=== PATIENT | male | born 1970 | race Caucasian/White ===

== ENCOUNTER 2016-06-18 07:52 | Emergency (ER) | payer OTHER ==
[~2016-06-18] VITALS: Ht 182.9 cm; Wt 86.4 kg
[~2016-06-18 07:52] MED LIST: 00186-0370-20 IH; ALBUTEROL1.25 MG/3 IH; COUMADIN 22.5 MG/TAB PO; COUMADIN 5MG5 MG/TAB PO; COUMADIN 77.5 MG/TAB PO; DEXILANT PO; IRON325 M1 PO; LASIX 20MG TABL20 MG PO; LEVAQUIN 5500 MG/TA1 PO; LEVAQUIN 750MG750 M1 PO; LEVAQUIN500 MG PO; LOPRESSOR 225 MG/TAB PO; MOTRIN 200200 MG/TAB PO; NO HOME MEDICATIONS; PACERONE200 MG PO; PENICILLIN PO; PREDNISONE20 MG PO; PRENATAL1 TA1 PO; PROAIR HFA0.09 MG/AC IH; ROCEPHIN2 GM IJ
[2016-06-18 07:54] VITALS: BP 161/82; PULSE 83; TEMP 97.8
[2016-06-18] MEDS ORDERED: ALBUTEROL0.83 MG/ML IH (07:58)
[2016-06-18] MEDS ORDERED: CEPHALEXIN500 M1 PO (08:52)
== END 2016-06-18 09:48 | disposition home or self-care (01) ==
LOC: COL.ER 07:52
DX: S61.212A Laceration without foreign body of right middle finger without damage to nail, initial encounter (principal); Z23 Encounter for immunization; Z79.01 Long term (current) use of anticoagulants; F17.210 Nicotine dependence, cigarettes, uncomplicated; W26.0XXA Contact with knife, initial encounter; Y92.009 Unspecified place in unspecified non-institutional (private) residence as the place of occurrence of the external cause; Z95.2 Presence of prosthetic heart valve

== ENCOUNTER 2017-06-13 13:07 | Emergency (ER) | payer OTHER ==
[~2017-06-13] VITALS: Ht 180.3 cm; Wt 81.4 kg
[~2017-06-13 13:07] MED LIST changes: +ALBUTEROL0.83 MG/ML IH; +CEPHALEXIN500 M1 PO
[2017-06-13 13:13] VITALS: TEMP 98.7
[2017-06-13 14:03] LABS: BASO # 0.1 (0.0-0.2); BASO % 0.9 % (0.0-2.0); EOS # 0.5 (0.0-0.7); GRAN # 4.4 (1.4-6.5); GRAN % 67.4 % (42.2-75.2); HEMATOCRIT 42.6 % (42.0-52.0); HEMOGLOBIN 14.6 g/dl (13.5-18.0); LYMPH % 15.9 % (20.0-51.0); MEAN CELL VOLUME 96 fl (80.0-100.0); MEAN CORPUSCULAR HEMOGLOBIN 33 pg (27.0-31.0); MEAN CORPUSCULAR HGB CONC 34 g/dl (33.0-37.0); MEAN PLATELET VOLUME 10.2 fl (7.4-10.4); MONO # 0.6 (0.1-0.6); MONO % 8.6 % (1.7-9.3); PLATELET COUNT 195 K/mm3 (130-400); RED BLOOD COUNT 4.43 M/mm3 (4.20-5.60); REDCELL DISTRIBUTION WIDTH-CV 12.3 % (11.5-14.5)
[2017-06-13 14:14] LABS: ALBUMIN 4.5 gm/dL (3.5-5.0); BILIRUBIN,TOTAL 0.6 mg/dL (0.0-1.0); CALCIUM 9.2 mg/dL (8.4-10.2); CREATININE, serum 0.75 mg/dL (0.66-1.25); INR 2.4 (0.8-3.0); POTASSIUM 4.3 mmol/L (3.4-5.0); PROTHROMBIN TIME 28.6 SECONDS (9.7-12.8); TOTAL PROTEIN 7.7 gm/dL (6.4-8.2)
[2017-06-13 14:25] LABS: TROPONIN-I 0.014 ng/mL (0.000-0.034)
[2017-06-13] MEDS ORDERED: DOXYCYCLINE 10100 MG PO (16:40)
[2017-06-13] MEDS ORDERED: PROAIR HFA0.09 MG/AC IH (16:40)
[2017-06-13 17:00] VITALS: BP 149/91; PULSE 88
== END 2017-06-13 17:01 | disposition home or self-care (01) ==
LOC: COL.ER 13:07
PROVIDERS: Physician Assistant
DX: J44.9 Chronic obstructive pulmonary disease, unspecified (principal); F17.210 Nicotine dependence, cigarettes, uncomplicated; Z95.2 Presence of prosthetic heart valve; Z79.01 Long term (current) use of anticoagulants
CPT/HCPCS: J7512

== ENCOUNTER 2017-07-10 21:20 | Inpatient (IN) | payer OTHER ==
[~2017-07-10] VITALS: Ht 182.9 cm; Wt 79.3 kg
[~2017-07-10 21:20] MED LIST changes: +DOXYCYCLINE 10100 MG PO
[2017-07-10 21:42] LABS: ARTERIAL BLD GAS O2 SATURATION 88.4 % (92-100); ARTERIAL BLD GAS TCO2 CT 30.1; ARTERIAL BLOOD GAS BASE EXCESS 1.7 (-2-2); ARTERIAL BLOOD GAS HCO3 28.4 meq/L (22-26); ARTERIAL BLOOD GAS PCO2 52.8 mmHg (35-45); ARTERIAL BLOOD GAS PO2 60.4 mmHg (80-100); ARTERIAL BLOOD GAS pH 7.35 (7.35-7.45)
[2017-07-10 21:56] LABS: BASO # 0.1 (0.0-0.2); BASO % 0.8 % (0.0-2.0); EOS # 0.6 (0.0-0.7); EOS % 7.1 % (0-4.0); GRAN # 5.3 (1.4-6.5); GRAN % 58.8 % (42.2-75.2); HEMATOCRIT 40.8 % (42.0-52.0); HEMOGLOBIN 13.8 g/dl (13.5-18.0); LYMPH % 22.7 % (20.0-51.0); MEAN CELL VOLUME 97 fl (80.0-100.0); MEAN CORPUSCULAR HEMOGLOBIN 33 pg (27.0-31.0); MEAN CORPUSCULAR HGB CONC 34 g/dl (33.0-37.0); MEAN PLATELET VOLUME 10.6 fl (7.4-10.4); MONO # 0.9 (0.1-0.6); MONO % 10.3 % (1.7-9.3); PLATELET COUNT 219 K/mm3 (130-400); REDCELL DISTRIBUTION WIDTH-CV 12.8 % (11.5-14.5)
[2017-07-10 22:04] LABS: INR 2.7 (0.8-3.0); PROTHROMBIN TIME 31.4 SECONDS (9.7-12.8)
[2017-07-10 22:11] LABS: ALBUMIN 4.1 gm/dL (3.5-5.0); BILIRUBIN,TOTAL 0.7 mg/dL (0.0-1.0); CALCIUM 9.3 mg/dL (8.4-10.2); CREATININE, serum 0.9 mg/dL (0.66-1.25); POTASSIUM 4.3 mmol/L (3.4-5.0); TOTAL PROTEIN 7.6 gm/dL (6.4-8.2)
[2017-07-10 22:22] LABS: TROPONIN-I 0.013 ng/mL (0.000-0.034)
[2017-07-11 00:51] VITALS: BP 137/70; PULSE 80; TEMP 97.6
[2017-07-11 04:13] VITALS: BP 135/74; PULSE 82; TEMP 97.8
[2017-07-11 06:29] LABS: HEMATOCRIT 40.7 % (42.0-52.0); HEMOGLOBIN 13.5 g/dl (13.5-18.0); MEAN CELL VOLUME 97 fl (80.0-100.0); MEAN CORPUSCULAR HEMOGLOBIN 32 pg (27.0-31.0); MEAN CORPUSCULAR HGB CONC 33 g/dl (33.0-37.0); MEAN PLATELET VOLUME 11.1 fl (7.4-10.4); PLATELET COUNT 192 K/mm3 (130-400); RED BLOOD COUNT 4.18 M/mm3 (4.20-5.60); REDCELL DISTRIBUTION WIDTH-CV 12.6 % (11.5-14.5)
[2017-07-11 06:32] LABS: INR 2.3 (0.8-3.0); PROTHROMBIN TIME 27.6 SECONDS (9.7-12.8)
[2017-07-11 06:36] LABS: ALBUMIN 3.8 gm/dL (3.5-5.0); BILIRUBIN,TOTAL 0.8 mg/dL (0.0-1.0); CREATININE, serum 0.62 mg/dL (0.66-1.25); TOTAL PROTEIN 7.2 gm/dL (6.4-8.2)
[2017-07-11 07:39] LABS: BAND 15 % (0-10); LYMPHOCYTE 8 % (20.0-51.0); NEUTROPHILS 77 % (42.0-75.2); PLATELET ESTIMATE NORMAL (NORMAL)
[2017-07-11 08:56] VITALS: BP 130/71; PULSE 84; TEMP 98.4
[2017-07-11 12:06] VITALS: BP 128/67; PULSE 96; TEMP 97.5
[2017-07-11 15:52] VITALS: BP 124/61; PULSE 87; TEMP 97.9
[2017-07-11 19:55] VITALS: BP 129/72; PULSE 92; TEMP 98.6
[2017-07-12] VITALS: BP 131/65; PULSE 92; TEMP 98.6
[2017-07-12 03:53] VITALS: BP 116/63; PULSE 70
[2017-07-12 06:37] LABS: BASO % 0.2 % (0.0-2.0); EOS # 0.1 (0.0-0.7); EOS % 0.7 % (0-4.0); GRAN # 8.1 (1.4-6.5); GRAN % 81.8 % (42.2-75.2); HEMATOCRIT 37.5 % (42.0-52.0); HEMOGLOBIN 12.6 g/dl (13.5-18.0); LYMPH % 10.1 % (20.0-51.0); MEAN CELL VOLUME 97 fl (80.0-100.0); MEAN CORPUSCULAR HEMOGLOBIN 33 pg (27.0-31.0); MEAN CORPUSCULAR HGB CONC 34 g/dl (33.0-37.0); MEAN PLATELET VOLUME 10.9 fl (7.4-10.4); MONO # 0.7 (0.1-0.6); MONO % 6.7 % (1.7-9.3); PLATELET COUNT 193 K/mm3 (130-400); RED BLOOD COUNT 3.87 M/mm3 (4.20-5.60); REDCELL DISTRIBUTION WIDTH-CV 12.7 % (11.5-14.5)
[2017-07-12 06:49] LABS: INR 1.4 (0.8-3.0)
[2017-07-12 06:50] LABS: CREATININE, serum 0.6 mg/dL (0.66-1.25); POTASSIUM 4.1 mmol/L (3.4-5.0)
[2017-07-12 08:14] VITALS: BP 110/66; PULSE 94; TEMP 97.7
[2017-07-12 12:50] VITALS: BP 119/60; PULSE 71; TEMP 97.8
[2017-07-12 14:34] LABS: PLEURAL FLUID APPEARANCE BLOODY; PLEURAL FLUID COLOR RED; PLEURAL FLUID RBC 452000 /mm3 (0-0); PLEURAL FLUID WBC 849 /mm3
[2017-07-12 14:39] LABS: GLUCOSE,PLEURAL FLUID 128 mg/dL; TOTAL PROTEIN,PLEURAL FLUID 4.5 gm/dL
[2017-07-12 15:39] VITALS: BP 132/60; PULSE 102; TEMP 97.2
[2017-07-12 20:27] VITALS: BP 126/65; PULSE 80
[2017-07-13 00:07] VITALS: BP 125/71; PULSE 77; TEMP 97.6
[2017-07-13 04:14] VITALS: BP 113/71; PULSE 66; TEMP 97.4
[2017-07-13 06:39] LABS: BASO % 0.3 % (0.0-2.0); EOS # 0.2 (0.0-0.7); EOS % 2.1 % (0-4.0); GRAN % 65.9 % (42.2-75.2); HEMATOCRIT 39.8 % (42.0-52.0); HEMOGLOBIN 12.9 g/dl (13.5-18.0); LYMPH # 1.6 (1.2-3.4); LYMPH % 21.7 % (20.0-51.0); MEAN CELL VOLUME 101 fl (80.0-100.0); MEAN CORPUSCULAR HEMOGLOBIN 33 pg (27.0-31.0); MEAN CORPUSCULAR HGB CONC 32 g/dl (33.0-37.0); MEAN PLATELET VOLUME 10.9 fl (7.4-10.4); MONO # 0.7 (0.1-0.6); MONO % 9.6 % (1.7-9.3); PLATELET COUNT 188 K/mm3 (130-400); RED BLOOD COUNT 3.96 M/mm3 (4.20-5.60); REDCELL DISTRIBUTION WIDTH-CV 12.6 % (11.5-14.5)
[2017-07-13 06:45] LABS: INR 1.1 (0.8-3.0); PROTHROMBIN TIME 12.9 SECONDS (9.7-12.8)
[2017-07-13 06:55] LABS: CALCIUM 8.9 mg/dL (8.4-10.2); CREATININE, serum 0.66 mg/dL (0.66-1.25); POTASSIUM 4.3 mmol/L (3.4-5.0)
[2017-07-13 07:27] VITALS: BP 119/69; PULSE 65; TEMP 98.1
[2017-07-13 11:36] VITALS: BP 130/68; PULSE 95; TEMP 97.6
[2017-07-13] MEDS ORDERED: MEDROL 4MG DOSPA4 MG PO (12:49)
[2017-07-13] MEDS ORDERED: LEVAQUIN 750MG750 M1 PO (12:49)
[2017-07-13] MEDS ORDERED: MUCINEX1200 MG PO (12:49)
[2017-07-13] MEDS ORDERED: TYLENOL 325MG325 MG PO (12:52)
[2017-07-13] MEDS ORDERED: LOVENOX 8080 MG/0.8 SQ (12:52)
[2017-07-13] MEDS ORDERED: PULMICORT180 MCG/Ac IH (12:53)
== END 2017-07-13 16:16 | disposition home or self-care (01) | DRG 189 ==
LOC: COL.ER 21:20 → MEDICAL 23:25
PROVIDERS: Emergency Medicine; Nurse Practitioner Family; Physician Assistant
PROC: 0W993ZX Drainage of Right Pleural Cavity, Percutaneous Approach, Diagnostic (ICD-10-PCS; principal; 2017-07-12)
DX: J96.01 Acute respiratory failure with hypoxia (principal); J44.1 Chronic obstructive pulmonary disease with (acute) exacerbation; J90 Pleural effusion, not elsewhere classified; F17.210 Nicotine dependence, cigarettes, uncomplicated; Z79.01 Long term (current) use of anticoagulants; Z95.2 Presence of prosthetic heart valve
CPT/HCPCS: 99222-AI; 99232-AI; 99239; J0696; J1650; J1956; J2930; J7512; Q9967

== ENCOUNTER → 2017-08-14 | Outpatient (CLI) | payer OTHER ==
[~2017-08-14] MED LIST changes: +LOVENOX 8080 MG/0.8 SQ; +MEDROL 4MG DOSPA4 MG PO; +MUCINEX1200 MG PO; +PULMICORT180 MCG/Ac IH; +TYLENOL 325MG325 MG PO
== END ==
LOC: COL.PUL 11:55
DX: J90 Pleural effusion, not elsewhere classified (principal); J44.9 Chronic obstructive pulmonary disease, unspecified
CPT/HCPCS: A9539; A9540

== ENCOUNTER 2017-08-29 08:19 | Day surgery (SDC) | payer OTHER ==
[~2017-08-29] VITALS: Ht 182.9 cm; Wt 82.1 kg
[2017-08-29 08:44] VITALS: BP 133/71; PULSE 88; TEMP 97.8
[2017-08-29] MEDS ORDERED: COUMADIN 5MG5 MG/TAB PO (08:51)
[2017-08-29 09:06] LABS: INR 1.4 (0.8-3.0); PROTHROMBIN TIME 15.5 SECONDS (9.7-12.8)
[2017-08-29 10:35] VITALS: BP 138/73; PULSE 80
[2017-08-29 10:45] VITALS: BP 123/74; PULSE 81
[2017-08-29 11:00] VITALS: BP 125/67; PULSE 82
[2017-08-29 11:15] LABS: PLEURAL FLUID RBC 734000 /mm3 (0-0); PLEURAL FLUID WBC 1405 /mm3
[2017-08-29 11:23] LABS: PLEURAL FLUID APPEARANCE BLOODY; PLEURAL FLUID COLOR RED
[2017-08-29 11:24] LABS: GLUCOSE,PLEURAL FLUID 79 mg/dL; TOTAL PROTEIN,PLEURAL FLUID 4.3 gm/dL
[2017-08-29 11:27] LABS: HEMATOCRIT 8.2 % (42.0-52.0); HEMOGLOBIN 2.4 g/dl (13.5-18.0)
[2017-08-29 17:10] VITALS: BP 124/80; PULSE 82
== END 2017-08-29 11:15 | disposition home or self-care (01) ==
LOC: SDCO 08:19 → EDSTATUS 09:30 → SDCO 11:15
PROVIDERS: Internal Medicine Pulmonary Disease
DX: J94.2 Hemothorax (principal); J90 Pleural effusion, not elsewhere classified; J44.9 Chronic obstructive pulmonary disease, unspecified; I27.20 Pulmonary hypertension, unspecified; F17.210 Nicotine dependence, cigarettes, uncomplicated; Z95.2 Presence of prosthetic heart valve; Z79.01 Long term (current) use of anticoagulants
CPT/HCPCS: 19804

== ENCOUNTER → 2018-09-21 | Outpatient (CLI) | payer SELFPAY ==
[2018-09-21 10:57] LABS: BASO % 0.3 % (0.0-2.0); EOS # 0.2 (0.0-0.7); EOS % 1.8 % (0-4.0); GRAN # 7.1 (1.4-6.5); GRAN % 78.8 % (42.2-75.2); HEMATOCRIT 43.8 % (42.0-52.0); HEMOGLOBIN 14.6 g/dl (13.5-18.0); LYMPH % 10.8 % (20.0-51.0); MEAN CELL VOLUME 99 fl (80.0-100.0); MEAN CORPUSCULAR HEMOGLOBIN 33 pg (27.0-31.0); MEAN CORPUSCULAR HGB CONC 33 g/dl (33.0-37.0); MEAN PLATELET VOLUME 9.6 fl (7.4-10.4); MONO # 0.7 (0.1-0.6); PLATELET COUNT 217 K/mm3 (130-400); RED BLOOD COUNT 4.44 M/mm3 (4.20-5.60); REDCELL DISTRIBUTION WIDTH-CV 12.7 % (11.5-14.5)
[2018-09-21 10:59] LABS: PROTHROMBIN TIME 11.2 SECONDS (9.7-12.8)
[2018-09-21 11:03] LABS: ALBUMIN 4.3 gm/dL (3.5-5.0); BILIRUBIN,TOTAL 0.7 mg/dL (0.0-1.0); CALCIUM 9.2 mg/dL (8.4-10.2); CREATININE, serum 0.85 (0.66-1.25); POTASSIUM 5.2 mmol/L (3.4-5.0)
== END ==
LOC: COL.RAD 10:35
PROVIDERS: Registered Nurse
DX: J44.9 Chronic obstructive pulmonary disease, unspecified (principal); J94.8 Other specified pleural conditions; Z95.4 Presence of other heart-valve replacement; Z95.2 Presence of prosthetic heart valve; Z79.01 Long term (current) use of anticoagulants; Z86.79 Personal history of other diseases of the circulatory system

== ENCOUNTER → 2018-09-27 | Outpatient (CLI) | payer SELFPAY ==
[2018-09-27 14:28] LABS: INR 2.1 (0.8-3.0); PROTHROMBIN TIME 24.9 SECONDS (9.7-12.8)
== END ==
LOC: COL.LAB 13:35
PROVIDERS: Internal Medicine
DX: Z01.89 Encounter for other specified special examinations (principal)

== ENCOUNTER → 2018-10-01 | Outpatient (CLI) | payer OTHER | LOC: COL.VAS 14:55 | DX: I51.7 Cardiomegaly (principal); J44.9 Chronic obstructive pulmonary disease, unspecified; Z98.890 Other specified postprocedural states; Z79.01 Long term (current) use of anticoagulants; Z95.2 Presence of prosthetic heart valve; Z86.79 Personal history of other diseases of the circulatory system ==

== ENCOUNTER → 2018-10-04 | Outpatient (CLI) | payer OTHER | LOC: COL.LAB 14:55 | PROVIDERS: Registered Nurse | DX: Z79.01 Long term (current) use of anticoagulants (principal); Z98.890 Other specified postprocedural states ==

== ENCOUNTER → 2018-10-18 | Outpatient (CLI) | payer OTHER ==
[2018-10-18 10:56] LABS: INR 3.3 (0.8-3.0); PROTHROMBIN TIME 40.1 SECONDS (9.7-12.8)
== END ==
LOC: COL.LAB 10:28
PROVIDERS: Registered Nurse
DX: Z79.01 Long term (current) use of anticoagulants (principal); Z98.890 Other specified postprocedural states

== ENCOUNTER → 2018-11-05 | Outpatient (CLI) | payer OTHER ==
[2018-11-05 09:46] LABS: COLLECTION METHOD CLEAN CATCH
[2018-11-05 09:51] LABS: HEMATOCRIT 38.6 % (42.0-52.0); MEAN CELL VOLUME 97 fl (80.0-100.0); MEAN CORPUSCULAR HEMOGLOBIN 33 pg (27.0-31.0); MEAN CORPUSCULAR HGB CONC 34 g/dl (33.0-37.0); MEAN PLATELET VOLUME 9.8 fl (7.4-10.4); PLATELET COUNT 206 K/mm3 (130-400); RED BLOOD COUNT 3.97 M/mm3 (4.20-5.60); REDCELL DISTRIBUTION WIDTH-CV 12.2 % (11.5-14.5)
[2018-11-05 09:55] LABS: PH 7 (5-8); SQUAMOUS EPITHELIAL None Seen /hpf; URINE APPEARANCE Clear; URINE BACTERIA None Seen /hpf; URINE BILIRUBIN Negative (NEGATIVE); URINE BLOOD Negative (NEGATIVE); URINE COLOR Straw; URINE GLUCOSE Negative (NEGATIVE); URINE KETONE Negative (NEGATIVE); URINE LEUKOCYTE ESTERASE Negative (NEGATIVE); URINE NITRATE Negative (NEGATIVE); URINE PROTEIN(semi-quant) Negative (NEGATIVE); URINE RBC 0-2 /hpf; URINE UROBILINOGEN Negative (NEGATIVE)
[2018-11-05 09:59] LABS: CHOLESTEROL RISK RATIO 2.4
[2018-11-05 10:31] LABS: TSH w REFLEX 1.44 uIU/mL (0.465-4.680)
[2018-11-05 11:44] LABS: EOSINOPHIL 3 % (0-4); LYMPHOCYTE 8 % (20.0-51.0); NEUTROPHILS 84 % (42.0-75.2)
[2018-11-05 11:45] LABS: PLATELET ESTIMATE NORMAL (NORMAL)
== END ==
LOC: COL.LAB 09:24
PROVIDERS: Registered Nurse
DX: Z13.228 Encounter for screening for other metabolic disorders (principal); Z79.01 Long term (current) use of anticoagulants

== ENCOUNTER → 2018-12-31 | Outpatient (CLI) | payer OTHER ==
[2018-12-31 10:16] LABS: PROTHROMBIN TIME 23.3 SECONDS (9.7-12.8)
== END ==
LOC: COL.LAB 09:16
PROVIDERS: Registered Nurse
DX: Z79.01 Long term (current) use of anticoagulants (principal); Z98.890 Other specified postprocedural states

== ENCOUNTER 2019-03-13 15:18 | Inpatient (IN) | payer OTHER ==
[~2019-03-13] VITALS: Ht 182.9 cm; Wt 88.6 kg
--- NOTE | 2019-03-13 10:30 | NUR ---
Pt resting in bed with girlfriend at bedside. Alert and oriented. Denies any pain or discomfort at this time. Has minor left sided facial drooping. Denies any weakness. Ambulatory. Pt able to drink water without coughing or complaints. Per Allie, TOURIST CAMP ATTENDANT advance to cardiac diet. Pt given sandwich and water. Meds given as ordered. IV to LW patent with fluids infusing. Needs met. Call light within reach.
[2019-03-13] MEDS ORDERED: COUMADIN 5MG5 MG/TAB PO (15:59)
[2019-03-13] MEDS ORDERED: BREO IH (16:00)
[2019-03-13] MEDS ORDERED: SPIRIVA RE2.5 MCG/Ac IH (16:00)
[2019-03-13] MEDS ORDERED: IPRATROPIUM BROM3 M1 IH (16:01)
[2019-03-13 16:07] LABS: BASO % 0.4 % (0.0-2.0); EOS # 0.3 (0.0-0.7); EOS % 3.9 % (0-4.0); GRAN # 5.5 (1.4-6.5); GRAN % 71.9 % (42.2-75.2); HEMATOCRIT 39.5 % (42.0-52.0); HEMOGLOBIN 13.6 g/dl (13.5-18.0); LYMPH # 1.2 (1.2-3.4); LYMPH % 15.9 % (20.0-51.0); MEAN CELL VOLUME 97 fl (80.0-100.0); MEAN CORPUSCULAR HEMOGLOBIN 33 pg (27.0-31.0); MEAN CORPUSCULAR HGB CONC 34 g/dl (33.0-37.0); MEAN PLATELET VOLUME 10.1 fl (7.4-10.4); MONO # 0.6 (0.1-0.6); MONO % 7.6 % (1.7-9.3); PLATELET COUNT 187 K/mm3 (130-400); RED BLOOD COUNT 4.09 M/mm3 (4.20-5.60); REDCELL DISTRIBUTION WIDTH-CV 11.9 % (11.5-14.5)
[2019-03-13 16:13] LABS: INR 1.1 (0.8-3.0); PROTHROMBIN TIME 12.5 SECONDS (9.7-12.8)
[2019-03-13 16:15] LABS: PARTIAL THROMBOPLASTIN TIME 33.9 SECONDS (26.0-37.0)
[2019-03-13 16:22] LABS: ALBUMIN 4.5 gm/dL (3.5-5.0); BILIRUBIN,TOTAL 0.6 mg/dL (0.0-1.0); CALCIUM 9.2 mg/dL (8.4-10.2); CREATININE, serum 0.67 (0.66-1.25); POTASSIUM 4.1 mmol/L (3.4-5.0); TOTAL PROTEIN 7.9 gm/dL (6.4-8.2)
[2019-03-13 16:31] LABS: TROPONIN-I 0.013 ng/mL (0.000-0.035)
[2019-03-13 21:01] LABS: MAGNESIUM 2.1 mg/dL (1.6-2.3); PHOSPHOROUS 3.8 mg/dL (2.5-4.5)
[2019-03-13] MEDS ORDERED: RT SPIRIVA18 MCG IH (23:11)
[2019-03-14] VITALS (7 sets, daily range): BP systolic 109–152; BP diastolic 53–89; PULSE 66–83; TEMP 97.7–98.4
--- NOTE | 2019-03-14 05:53 | NUR ---
Pt uneventful during this shift. Pt aware of urine collection and to notify staff when he urinates. Girlfriend remained at bedside. Call light within reach.
--- NOTE | 2019-03-14 07:14 | NUR ---
Report given to YOSVANY Melgar.
[2019-03-14 07:29] LABS: BASO % 0.6 % (0.0-2.0); EOS # 0.2 (0.0-0.7); EOS % 3.2 % (0-4.0); GRAN # 4.5 (1.4-6.5); GRAN % 68.5 % (42.2-75.2); HEMATOCRIT 37.7 % (42.0-52.0); HEMOGLOBIN 12.6 g/dl (13.5-18.0); LYMPH # 1.2 (1.2-3.4); LYMPH % 17.8 % (20.0-51.0); MEAN CELL VOLUME 99 fl (80.0-100.0); MEAN CORPUSCULAR HEMOGLOBIN 33 pg (27.0-31.0); MEAN CORPUSCULAR HGB CONC 33 g/dl (33.0-37.0); MEAN PLATELET VOLUME 10.7 fl (7.4-10.4); MONO # 0.6 (0.1-0.6); MONO % 9.6 % (1.7-9.3); PLATELET COUNT 170 K/mm3 (130-400); REDCELL DISTRIBUTION WIDTH-CV 12.1 % (11.5-14.5)
[2019-03-14 07:39] LABS: INR 1.1 (0.8-3.0); PROTHROMBIN TIME 12.7 SECONDS (9.7-12.8)
[2019-03-14 07:41] LABS: CALCIUM 8.9 mg/dL (8.4-10.2); CHOLESTEROL RISK RATIO 2.5; CREATININE, serum 0.65 (0.66-1.25); POTASSIUM 4.2 mmol/L (3.4-5.0)
[2019-03-14 07:52] LABS: COLLECTION METHOD CLEAN CATCH
--- NOTE | 2019-03-14 08:00 | NUR ---
Patient in bed resting. Alert and oriented x 3. Shift assessment complete. Spouse at bedside. Mild slurring with speach noted. Denies further needs at this time. Will continue to monitor.
[2019-03-14 08:09] LABS: PH 5 (5-8); SQUAMOUS EPITHELIAL None Seen /hpf; URINE APPEARANCE Clear; URINE BACTERIA None Seen /hpf; URINE BILIRUBIN Negative (NEGATIVE); URINE BLOOD 1+ (NEGATIVE); URINE COLOR Yellow; URINE GLUCOSE Negative (NEGATIVE); URINE KETONE Negative (NEGATIVE); URINE LEUKOCYTE ESTERASE Negative (NEGATIVE); URINE NITRATE Negative (NEGATIVE); URINE PROTEIN(semi-quant) Negative (NEGATIVE); URINE RBC 0-2 /hpf; URINE UROBILINOGEN Negative (NEGATIVE)
[2019-03-14 08:12] LABS: TRICYCLIC ANTIDEPRESS URINE NEGATIVE
--- NOTE | 2019-03-14 10:02 | NUR ---
Patient is lying in bed at this time. Up Ad Alina. Patient has no complaints at this time. Bed in low position, call light within reach, will continue to monitor.
--- NOTE | 2019-03-14 10:46 | NUR ---
Patient down for MRI
--- NOTE | 2019-03-14 11:20 | NUR ---
MRI called up, patient had a panic attack while attempting to get MRI done, Contacted Ratna GOMEZ for 1 time order of ativan. Medication given down in MRI.
--- NOTE | 2019-03-14 13:49 | NUR ---
Patient is laying in bed sleeping at this time. Has no complaints. Bed in low position, call light within reach. Report given to primary RN Talia.
--- NOTE | 2019-03-14 13:59 | NUR ---
Primary nurse was assisted with [id number] patient care by [employer] student Mony Cristina and [employer] instructor Mercedes Newton RN-.
--- NOTE | 2019-03-14 14:00 | NUR ---
Radiology was unable to complete MRI due to patient anxiety during exam. Hosiptalist was notified.
--- NOTE | 2019-03-14 14:17 | NUR ---
KADY met with the patient and the patient's girlfriend, Palmira (ph#[phone]), to discuss discharge plan. The patient lives alone in [place]. Palmira states that she lives an apartment down from him. He reports independence with ADLs and does not have any DME. The patient receives primary care at the [facility] in [place] and he receives his medications at the [facility] in [place] or [facility]. He reports difficulties affording his meds and states that the [facility] in [place] assists him with his meds. The patient is self pay. Financial Counseling has been consulted. The patient does not have advanced directives completed, but he was interested in obtaining a form for DPOA-HC. KADY provided. He states that his next of kin would be his brother, Driss (ph#[phone]). The patient plans to return home upon discharge. SW to continue to follow.
[2019-03-14 15:55] LABS: FOLATE (FOLIC ACID) 15.2 ng/mL (7.0-31.4)
--- NOTE | 2019-03-14 18:18 | NUR ---
Patient has done well throughout the day. Minimal needs. Independent in room, steady gait. Family at bedside. Heparin drip initiated per orders. Denies further needs at this time. Will report off to slot shift manager.
--- NOTE | 2019-03-14 18:50 | NUR ---
REPORT RECEIVED FROM YOSVNAY CORMIER; CARE OF PT ASSUMED AT THIS TIME. ROUNDS COMPLETED, PT PROVIDED WITH ICE WATER PER REQUEST. CALL LIGHT WITHIN REACH.
--- NOTE | 2019-03-14 20:59 | NUR ---
PT IS DROWSY, AWAKENS EASILY; OX3, APPROPRIATE. PT DENIES ANY PAIN. SPEECH IS SLIGHTLY SLURRED, FACIAL DROOP TO LEFT SIDE BARELY NOTICEABLE. ACUTE CARE CERTIFIED NURSING ASSISTANT AND PRESSES ARE EQUAL. PT DENIES ANY OTHER ISSUES. AT BEDSIDE, CALL LIGHT WITHIN REACH.
--- NOTE | 2019-03-14 23:15 | NUR ---
Xa RESULT IS 0.67, NO CHANGE TO HEPARIN GTT. LAB ORDERED FOR 03/15/19 AT 0500.
[2019-03-15] VITALS (10 sets, daily range): BP systolic 103–125; BP diastolic 44–82; PULSE 70–80; TEMP 97.2–98.8
--- NOTE | 2019-03-15 06:17 | NUR ---
PT SLEPT THROUGH THE NIGHT BETWEEN ALCOHOL DETOX ASSESSMENTS EVERY 2 HOURS. PT HAS NOT BEEN SCORING ON THESE. PT DENIES ANY ISSUES OR PAIN. VERY SLIGHT FACIAL DROOP IS NOTED OCC AND PT HAS SOME SLURRED SPEECH THAT HAS SEEMED TO IMPROVE SINCE START OF SHIFT. STAYED IN ROOM WITH PT THROUGH THE NIGHT. NEURO CHECKS HAVE BEEN NORMAL.
--- NOTE | 2019-03-15 07:13 | NUR ---
REPORT GIVEN TO YOSVANY FITZGERALD; [facility].
[2019-03-15 07:40] LABS: INR 1.1 (0.8-3.0); PROTHROMBIN TIME 13.2 SECONDS (9.7-12.8)
--- NOTE | 2019-03-15 10:41 | NUR ---
Patient laying in bed awake, has no complaints at this time. patient up ad simba. call light within reach, will continue to monitor.
--- NOTE | 2019-03-15 12:36 | NUR ---
Patient down in MRI at this time.
--- NOTE | 2019-03-15 13:00 | NUR ---
Patient had his MRI. He was off his heparin for about an hour. Restarted heparin as ordered per protocol. Called lab to cancel 1245 HepXa but they had already drawn it and resulted it. Explained that it is not accurate since he was off his heparin. Will check at 1830 per protocol. Patient has been independent in the room. His has been with him. He continues to have some left sided weakness to his arm and hand, gait is steady to left foot. He has some slurred speech. No other changes at this time. Call light within reach.
--- NOTE | 2019-03-15 13:38 | NUR ---
Report given to primary RN Kathy.
--- NOTE | 2019-03-15 14:01 | NUR ---
Primary nurse was assisted with [phone] patient care by [employer] student Mony Cristina and [employer] instructor Mercedes Newton RN-.
--- NOTE | 2019-03-15 20:30 | NUR ---
Shift assessment complete. Patient dangling at bedside, visiting with and friend. Denies pain. CIWA score 0. Neuro assessment WNL. Denies further needs at this time. Will continue to monitor.
[2019-03-16] VITALS (9 sets, daily range): BP systolic 116–142; BP diastolic 50–76; PULSE 66–82; TEMP 97.9–98.7
--- NOTE | 2019-03-16 02:37 | NUR ---
Hep Xa 0.37, within goal rate. No change. Will place order for Hep Xa at 0800.
--- NOTE | 2019-03-16 04:57 | NUR ---
Patient in bed, resting. VS stable, CIWA score 0. Denies pain. Denies further needs at this time. Will continue to monitor.
--- NOTE | 2019-03-16 08:15 | NUR ---
Assessment complete. Pt sitting up on side of bed, A&O x 4. Breath sounds CTAB. BS active x 4. Pt denies pain at this time. IV Heparin infusing per orders through left forearm site without s/s of complications. Slight asymmetry to the left with tongue, facial droop. No further needs reported. Call light in reach.
[2019-03-16 08:16] LABS: BASO % 0.5 % (0.0-2.0); EOS # 0.2 (0.0-0.7); EOS % 4.3 % (0-4.0); GRAN # 3.5 (1.4-6.5); GRAN % 63.5 % (42.2-75.2); HEMATOCRIT 40.4 % (42.0-52.0); HEMOGLOBIN 13.6 g/dl (13.5-18.0); LYMPH # 1.1 (1.2-3.4); LYMPH % 20.1 % (20.0-51.0); MEAN CELL VOLUME 98 fl (80.0-100.0); MEAN CORPUSCULAR HEMOGLOBIN 33 pg (27.0-31.0); MEAN CORPUSCULAR HGB CONC 34 g/dl (33.0-37.0); MEAN PLATELET VOLUME 10.7 fl (7.4-10.4); MONO # 0.6 (0.1-0.6); MONO % 11.2 % (1.7-9.3); PLATELET COUNT 173 K/mm3 (130-400); RED BLOOD COUNT 4.12 M/mm3 (4.20-5.60); REDCELL DISTRIBUTION WIDTH-CV 11.9 % (11.5-14.5)
[2019-03-16 08:25] LABS: INR 1.3 (0.8-3.0); PROTHROMBIN TIME 14.9 SECONDS (9.7-12.8)
[2019-03-16 08:37] LABS: CALCIUM 9.5 mg/dL (8.4-10.2); CREATININE, serum 0.66 (0.66-1.25); POTASSIUM 4.5 mmol/L (3.4-5.0)
--- NOTE | 2019-03-16 20:00 | NUR ---
Pt resting in bed. Family at bedside. No distress noted. Pt denies pain. L sided weakness noted in manager battery strength- very minimal. L sided facial droop noted. No other neurological deficits noted. Lungs clear. Abdomen soft, nontender. BS+. Telemetry in place- NSR. Pt denies needs.
--- NOTE | 2019-03-16 22:30 | NUR ---
Telemetry called and reported patient had a 17 beat run of A fib with RVR and converted back into SR. Pt was sleeping. Denies any symptoms. Myrna GOMEZ contacted. Orders received for labs and Lopressor BID.
[2019-03-17] VITALS (8 sets, daily range): BP systolic 110–131; BP diastolic 64–91; PULSE 59–81; TEMP 98.1–98.8
[2019-03-17 00:33] LABS: CALCIUM 9.4 mg/dL (8.4-10.2); CREATININE, serum 0.69 (0.66-1.25); MAGNESIUM 2.1 mg/dL (1.6-2.3); POTASSIUM 4.4 mmol/L (3.4-5.0)
--- NOTE | 2019-03-17 05:40 | NUR ---
Pt resting this AM. Heparin gtt infusing. Awaiting Hep Xa lab draw. Pt reports shortness of breath. Inspiratory and expiratory wheezes auscultated throughout. Spo2 is 97% on room air. RT called to request breathing treatment.
--- NOTE | 2019-03-17 07:36 | NUR ---
Assessment complete. Pt A&O x 4. Physical assessment unremarkable. IV Heparin infusing per orders through left forearm site without s/s of complications. Pt now ambulating in hallway with steady gait accompanied by significant other.
[2019-03-17 08:27] LABS: INR 1.3 (0.8-3.0); PROTHROMBIN TIME 15.7 SECONDS (9.7-12.8)
--- NOTE | 2019-03-17 10:23 | NUR ---
Warfarin Follow-up Pharmacy Note Current regimen: Warfarin 7.5 mg po qHS LABS: INR 1.3 Changes in therapy: Will increase to Warfarin 10 mg po qHS as INR not increasing on current regimen. Pharmacy will coninute to monitor daily INR levels.
--- NOTE | 2019-03-17 18:00 | NUR ---
Pt sitting up in bed, has been ambulating in the room and hallway throughout the day with a steady gait. Uneventful shift. Heparin infusion infusing per protocol. Call light in reach.
[2019-03-18 04:40] VITALS: BP 128/71; PULSE 75; TEMP 98.4
--- NOTE | 2019-03-18 05:22 | NUR ---
PT RESTING QUIETLY. NEURO CHECKS WNL. NO VISABLE DEFICITS. NO SLURRED SPEECH NOTED.
[2019-03-18 06:57] LABS: INR 1.5 (0.8-3.0); PROTHROMBIN TIME 17.6 SECONDS (9.7-12.8)
[2019-03-18 07:56] VITALS: BP 126/73; PULSE 67; TEMP 98.2
--- NOTE | 2019-03-18 08:00 | NUR ---
PATIENT IS A&O. VSS. DENIES PAIN. PATIENT ON HEPARIN GTT VIA PUMP INTO LEFT WRIST IV. HEAD TO TOE ASSESSMENT COMPLETE. AM MEDS GIVEN. PATIENT INDEPENDENT IN ROOM. AT BEDSIDE. TELE INPLACE WITH HR IN 60-70'S. DENIES SOA OR CHEST PAIN. PT/OT/ST CONSULTED. BREAKFAST TRAY AT BEDSIDE. NO OTHER NEEDS AT THIS TIME.
--- NOTE | 2019-03-18 10:30 | NUR ---
PATIENT HAD A HEPXA AT 0600 OF 0.07, NO HEP BOLUS OR TITRATION NOTED ON EMAR. COMFIRMED WITH PHARMACY. NO ADJUSTMENT OR REPEAT HEXPA ORDERED. PATIENT GIVEN BOLUS AND INCREASED HEP GTT BY 2.5ML FOR A TOTAL OF 18.5ML/HR. NEXT HEPXA ORDERED. HEPARIN FLOW SHEET ON PATIENT'S DOOR. WILL MONITOR.
[2019-03-18 12:18] VITALS: BP 131/71; PULSE 65; TEMP 98.8
[2019-03-18 15:21] VITALS: BP 127/71; PULSE 71; TEMP 97.8
--- NOTE | 2019-03-18 15:58 | NUR ---
Services Executive attended rounds with the team. SW to continue to follow as needed.
[2019-03-18 19:07] VITALS: BP 136/75; PULSE 70; TEMP 98
--- NOTE | 2019-03-18 22:42 | NUR ---
Assessment complete. Alert and oriented x4. Denies any pain or discomfort. Family at bedside. IV to LW intact with heparin drip infusing at rate 18.5ml/hr. Meds administered as ordered. Needs attended too. Call light within reach.
[2019-03-18 23:17] VITALS: BP 136/97; PULSE 74; TEMP 98.3
[2019-03-19 03:07] VITALS: BP 119/69; PULSE 72; TEMP 97.5
--- NOTE | 2019-03-19 05:57 | NUR ---
Pt uneventful during this shift. Call light within reach. Girlfriend remained at bedside.
--- NOTE | 2019-03-19 07:04 | NUR ---
Report recieved from YOSVANY Thorne. Patient participates and denies needs at this time. Heparin gtt concentration and rate verified and running to uncomplicated peripheral line. Care assumed.
--- NOTE | 2019-03-19 07:04 | NUR ---
Report given to YOSVANY Perry.
[2019-03-19 07:45] LABS: CALCIUM 9.5 mg/dL (8.4-10.2); CREATININE, serum 0.7 (0.66-1.25); POTASSIUM 4.5 mmol/L (3.4-5.0)
[2019-03-19 07:48] LABS: INR 1.7 (0.8-3.0); PROTHROMBIN TIME 20.7 SECONDS (9.7-12.8)
[2019-03-19 08:12] LABS: BASO % 0.7 % (0.0-2.0); EOS # 0.3 (0.0-0.7); EOS % 5.3 % (0-4.0); GRAN # 3.5 (1.4-6.5); GRAN % 61.9 % (42.2-75.2); HEMATOCRIT 41.7 % (42.0-52.0); HEMOGLOBIN 14.1 g/dl (13.5-18.0); LYMPH % 17.9 % (20.0-51.0); MEAN CELL VOLUME 98 fl (80.0-100.0); MEAN CORPUSCULAR HEMOGLOBIN 33 pg (27.0-31.0); MEAN CORPUSCULAR HGB CONC 34 g/dl (33.0-37.0); MEAN PLATELET VOLUME 11.9 fl (7.4-10.4); MONO # 0.8 (0.1-0.6); MONO % 13.7 % (1.7-9.3); PLATELET COUNT 178 K/mm3 (130-400); RED BLOOD COUNT 4.27 M/mm3 (4.20-5.60); REDCELL DISTRIBUTION WIDTH-CV 11.7 % (11.5-14.5)
[2019-03-19 08:52] VITALS: BP 125/74; PULSE 73; TEMP 97.7
--- NOTE | 2019-03-19 11:35 | NUR ---
Dr. Richards rounds at this time. Orders as entered CPOE. Care ongoing.
--- NOTE | 2019-03-19 11:40 | NUR ---
Mask Layout Designer attended rounds with the team. Patient states he is still working on his speech. SW to continue to follow as needed.
[2019-03-19 11:49] VITALS: BP 119/71; PULSE 62; TEMP 98.3
[2019-03-19 16:37] VITALS: BP 129/69; PULSE 75; TEMP 98.2
[2019-03-19 19:38] VITALS: BP 127/70; PULSE 80; TEMP 98.8
--- NOTE | 2019-03-19 20:00 | NUR ---
Report received from YOSVANY Perry. Assessment complete. Alert and oriented. Girlfriend at bedside. Denies any pain or discomfort at this time. IV to LW intact with heparin infusing at 18.5ml/hr.Meds administered as ordered. Needs met at this time. Call light within reach.
[2019-03-20] VITALS (7 sets, daily range): BP systolic 114–132; BP diastolic 66–85; PULSE 68–80; TEMP 97.7–98.2
--- NOTE | 2019-03-20 05:52 | NUR ---
Pt uneventful during this shift. Meds admnistered as ordered. Girlfriend remained at bedside. Needs met. Call light within reach.
[2019-03-20 06:34] LABS: BASO % 0.8 % (0.0-2.0); EOS # 0.3 (0.0-0.7); EOS % 5.3 % (0-4.0); GRAN # 3.3 (1.4-6.5); GRAN % 61.8 % (42.2-75.2); HEMATOCRIT 40.9 % (42.0-52.0); HEMOGLOBIN 13.6 g/dl (13.5-18.0); LYMPH % 18.8 % (20.0-51.0); MEAN CELL VOLUME 99 fl (80.0-100.0); MEAN CORPUSCULAR HEMOGLOBIN 33 pg (27.0-31.0); MEAN CORPUSCULAR HGB CONC 33 g/dl (33.0-37.0); MEAN PLATELET VOLUME 11.7 fl (7.4-10.4); MONO # 0.7 (0.1-0.6); MONO % 12.9 % (1.7-9.3); PLATELET COUNT 171 K/mm3 (130-400); RED BLOOD COUNT 4.14 M/mm3 (4.20-5.60); REDCELL DISTRIBUTION WIDTH-CV 11.8 % (11.5-14.5)
[2019-03-20 06:42] LABS: CALCIUM 9.1 mg/dL (8.4-10.2); CREATININE, serum 0.68 (0.66-1.25); POTASSIUM 4.2 mmol/L (3.4-5.0)
[2019-03-20 06:53] LABS: INR 1.9 (0.8-3.0); PROTHROMBIN TIME 22.7 SECONDS (9.7-12.8)
--- NOTE | 2019-03-20 07:09 | NUR ---
Report given to YOSVANY Alvarado.
--- NOTE | 2019-03-20 07:44 | NUR ---
Patient up in room independently. Denies any c/o pain or discomfort. No slurred speech this AM. Noted a small amount of continued facial drooping. Patient is alert and oriented x 3. Skin w/d. Color pale pink. Lungs CTA with resp even/unlabored. Abd soft with bowel sounds x 4 quads. PPP. No pedal edema noted. at his side.
--- NOTE | 2019-03-20 16:19 | NUR ---
Junior Database Administrator attended rounds with the team and Hospitalist discussed target discharge date. SW met with patient who advised he is doing okay, just ready to be discharged home. No additional concerns at this time.
[2019-03-21 03:36] VITALS: BP 124/80; PULSE 73
[2019-03-21 07:36] VITALS: BP 134/72; PULSE 67; TEMP 98.2
[2019-03-21 07:44] LABS: BASO % 0.6 % (0.0-2.0); EOS # 0.3 (0.0-0.7); GRAN # 4.1 (1.4-6.5); GRAN % 60.3 % (42.2-75.2); HEMATOCRIT 42.7 % (42.0-52.0); HEMOGLOBIN 14.2 g/dl (13.5-18.0); LYMPH # 1.2 (1.2-3.4); LYMPH % 18.2 % (20.0-51.0); MEAN CELL VOLUME 98 fl (80.0-100.0); MEAN CORPUSCULAR HEMOGLOBIN 33 pg (27.0-31.0); MEAN CORPUSCULAR HGB CONC 33 g/dl (33.0-37.0); MEAN PLATELET VOLUME 11.3 fl (7.4-10.4); MONO % 15.3 % (1.7-9.3); PLATELET COUNT 199 K/mm3 (130-400); RED BLOOD COUNT 4.34 M/mm3 (4.20-5.60); REDCELL DISTRIBUTION WIDTH-CV 11.6 % (11.5-14.5)
[2019-03-21 07:47] LABS: INR 2.8 (0.8-3.0); PROTHROMBIN TIME 33.4 SECONDS (9.7-12.8)
[2019-03-21 07:57] LABS: CALCIUM 9.7 mg/dL (8.4-10.2); CREATININE, serum 0.76 (0.66-1.25); POTASSIUM 4.4 mmol/L (3.4-5.0)
--- NOTE | 2019-03-21 08:22 | NUR ---
Pt awake and alert this morning upon entry, sitting on side of bed, no C/O pain at this time, shift assessments complete, left Pt call light in reach.
[2019-03-21] MEDS ORDERED: LOPRESSOR 225 MG/TAB PO (09:20)
[2019-03-21] MEDS ORDERED: COUMADIN 5MG5 MG/TAB PO (09:20)
[2019-03-21] MEDS ORDERED: ASPIRIN 81M81 MG/TA2 PO (09:20)
[2019-03-21] MEDS ORDERED: LIPITOR 10MG10 MG PO (09:20)
--- NOTE | 2019-03-21 09:25 | NUR ---
Associate Professor Of Automation attended rounds with the team. Patient to discharge home today
[2019-03-21 11:19] VITALS: BP 122/82; PULSE 70; TEMP 98
--- NOTE | 2019-03-21 12:03 | NUR ---
Pt discharged to home, escorted to entrance left with family via private auto.
== END 2019-03-21 12:04 | disposition home or self-care (01) | DRG 65 ==
LOC: COL.ER 15:18 → MEDICAL 18:12
PROVIDERS: Emergency Medicine; Internal Medicine; Nurse Practitioner Family; Physician Assistant; Student in an Organized Health Care Education/Training Program
DX: I63.81 Other cerebral infarction due to occlusion or stenosis of small artery (principal); G81.94 Hemiplegia, unspecified affecting left nondominant side; R47.1 Dysarthria and anarthria; R29.810 Facial weakness; F40.240 Claustrophobia; I10 Essential (primary) hypertension; R79.1 Abnormal coagulation profile; F17.210 Nicotine dependence, cigarettes, uncomplicated; F10.10 Alcohol abuse, uncomplicated; I48.91 Unspecified atrial fibrillation; G47.33 Obstructive sleep apnea (adult) (pediatric); J43.9 Emphysema, unspecified; Z95.2 Presence of prosthetic heart valve; Z79.01 Long term (current) use of anticoagulants; Z79.51 Long term (current) use of inhaled steroids; Z91.14 Patient's other noncompliance with medication regimen
CPT/HCPCS: 99223-AI; 99232-AI; 99239; A9585; C9113; J1644; J1650; J2060; J2704; J3010; J3411; J7030; J7120; Q9967

== ENCOUNTER 2019-07-11 12:47 | Inpatient (IN) | payer OTHER ==
[~2019-07-11] VITALS: Ht 182.9 cm; Wt 88.9 kg
[~2019-07-11 12:47] MED LIST changes: +ASPIRIN 81M81 MG/TA2 PO; +BREO IH; +IPRATROPIUM BROM3 M1 IH; +LIPITOR 10MG10 MG PO; +RT SPIRIVA18 MCG IH; +SPIRIVA RE2.5 MCG/Ac IH
[2019-07-11 14:07] LABS: BASO # 0.1 (0.0-0.2); BASO % 0.8 % (0.0-2.0); EOS # 0.7 (0.0-0.7); EOS % 8.3 % (0-4.0); GRAN % 69.3 % (42.2-75.2); HEMOGLOBIN 12.3 g/dl (13.5-18.0); LYMPH % 11.9 % (20.0-51.0); MEAN CELL VOLUME 94 fl (80.0-100.0); MEAN CORPUSCULAR HEMOGLOBIN 31 pg (27.0-31.0); MEAN CORPUSCULAR HGB CONC 33 g/dl (33.0-37.0); MEAN PLATELET VOLUME 9.8 fl (7.4-10.4); MONO # 0.8 (0.1-0.6); MONO % 9.4 % (1.7-9.3); PLATELET COUNT 282 K/mm3 (130-400); RED BLOOD COUNT 3.94 M/mm3 (4.20-5.60); REDCELL DISTRIBUTION WIDTH-CV 13.5 % (11.5-14.5)
[2019-07-11 14:08] LABS: HEMATOCRIT 36.9 % (42.0-52.0); INR 3.8 (0.8-3.0)
[2019-07-11 14:11] LABS: PROTHROMBIN TIME 46.1 SECONDS (9.7-12.8)
[2019-07-11 14:15] LABS: ALANINE AMINOTRANSFERASE 19 U/L (4-49); ALBUMIN 4.4 gm/dL (3.5-5.0); ALKALINE PHOSPHATASE 114 U/L (50-136); ANION GAP 5 mmol/L (7-16); AST,SGOT 38 U/L (15-37); BILIRUBIN,TOTAL 0.8 mg/dL (0.0-1.0); BLOOD UREA NITROGEN 13 mg/dL (9-20); CALCIUM 9.3 mg/dL (8.4-10.2); CARBON DIOXIDE 28 mmol/L (22-30); CHLORIDE 103 mmol/L (98-107); CREATININE, serum 0.65 (0.66-1.25); GLUCOSE 173 mg/dL (74-106); POTASSIUM 4.6 mmol/L (3.4-5.0); SODIUM 135 mmol/L (137-145)
[2019-07-11 14:28] LABS: TROPONIN-I < 0.012 ng/mL (0.000-0.035)
[2019-07-11 15:30] LABS: C-REACTIVE PROTEIN 4.4 mg/dL (0.0-0.9)
[2019-07-11 16:45] VITALS: BP 84/55; PULSE 95; TEMP 98
--- NOTE | 2019-07-11 19:36 | NUR ---
Pt up to floor this afternoon from the ED, initial assessments complete, pt resting in the room.
--- NOTE | 2019-07-11 20:15 | NUR ---
Received report from YOSVANY Cartwright. PT sleeping in bed upon entry, easily aroused. Alert and oriented x4. Denies any pain or discomfort at this time. Denies SOB. On 2LO2NC, SpO2 94%. Meds administered. Tele monitor in place, leads checked. INT to LH intact, flushed, dressing CDI. Needs met. Call light within reach.
[2019-07-11 21:09] VITALS: BP 115/75; PULSE 91; TEMP 97.4
[2019-07-12] VITALS (7 sets, daily range): BP systolic 102–129; BP diastolic 51–68; PULSE 84–95; TEMP 97.7–98.5
--- NOTE | 2019-07-12 00:57 | NUR ---
RN CALLED RT FOR PRN, PT FEELING SOB. RT GAVE TX.
--- NOTE | 2019-07-12 06:23 | NUR ---
Pt made no complaints during the night. Needs attended too. Meds administered. Call light within reach.
[2019-07-12 06:28] LABS: MEAN CELL VOLUME 95 fl (80.0-100.0); MEAN CORPUSCULAR HEMOGLOBIN 31 pg (27.0-31.0); MEAN CORPUSCULAR HGB CONC 33 g/dl (33.0-37.0); MEAN PLATELET VOLUME 10.3 fl (7.4-10.4); PLATELET COUNT 253 K/mm3 (130-400); RED BLOOD COUNT 3.82 M/mm3 (4.20-5.60); REDCELL DISTRIBUTION WIDTH-CV 13.5 % (11.5-14.5)
[2019-07-12 06:31] LABS: HEMATOCRIT 36.3 % (42.0-52.0)
[2019-07-12 06:36] LABS: INR 2.9 (0.8-3.0); PROTHROMBIN TIME 35.3 SECONDS (9.7-12.8)
--- NOTE | 2019-07-12 06:40 | NUR ---
Report given to YOSVANY Cartwright.
[2019-07-12 06:43] LABS: CALCIUM 9.2 mg/dL (8.4-10.2); CREATININE, serum 0.54 (0.66-1.25); POTASSIUM 4.5 mmol/L (3.4-5.0)
[2019-07-12 07:58] LABS: BAND 1 % (0-10); LYMPHOCYTE 5 % (20.0-51.0); NEUTROPHILS 93 % (42.0-75.2)
[2019-07-12 07:59] LABS: PLATELET ESTIMATE NORMAL (NORMAL)
--- NOTE | 2019-07-12 10:38 | NUR ---
Pt awake and alert this morning, no C/O pain currently, shift assessments complete, left Pt call light in rEACH
[2019-07-12 12:14] LABS: PARTIAL THROMBOPLASTIN TIME 47.9 SECONDS (26.0-37.0)
--- NOTE | 2019-07-12 12:15 | NUR ---
Vancomycin Initial Dosing Pharmacy Note Ordering provider: MD Danielle Indication/duration: empyema Relevant comorbidities: COPD LABS: WBC 8, SCr 0.54, CrCl > 100, blood cultures pending Recommendation: vancomycin 17 mg/kg Loading dose: 1.75 grams Maintenance dose: 1.5 grams every 12 hours Trough goal: 15-20 ug/mL. Trough 4/5 @ 1030.
--- NOTE | 2019-07-12 14:25 | NUR ---
Medical Health Researcher contacted patient to discuss discharge planning. Patient lives alone in [place] although he reports his girlfriend Palmira (ph#[phone]) lives next door. Patient sees Kimberlee Alexander at [facility] in [place]. Patient obtains medications from [facility] in [place]. Patient has a nebulizer at home and no other DME. Patient is independent with ADLS and plans to return home upon discharge. Patient has a living will but no DPOA-HC. Patient is wearing oxygen at this time but states he has not needed home oxygen. SW will continue to monitor.
--- NOTE | 2019-07-12 18:11 | NUR ---
Pt resting in the room today, no C/O pain, Pt has some dyspnea at rest, PICC line flushing and drawing well, Heparin drip increased fron the starting rate of 10 ml/hr to 11.5 ml/hr @ 1700, Hep XA lab scheduled for 2330 hrs, antibiotics started as ordered without any issues. VS have remained stable for this Pt.
--- NOTE | 2019-07-12 20:30 | NUR ---
Received report from YOSVANY Cartwright. Alert and oriented x4. Denies any pain or SOB at this time. Scheduled meds adminsitered. PICC to CURT intact, flushed, meds infusing, dressing CDI. On 2LOCNC. Tele monitor in place, leads checked. Needs met at this time. Call light within reach.
[2019-07-13] VITALS (7 sets, daily range): BP systolic 114–128; BP diastolic 50–67; PULSE 72–95; TEMP 97.7–98
--- NOTE | 2019-07-13 01:02 | NUR ---
RT CALLED FOR PRN TX, PT FEELING SOB. RT GAVE PT TX.
--- NOTE | 2019-07-13 06:05 | NUR ---
Pt made no complaints during the night. Scheduled meds administered. Needs met. call light within reach.
[2019-07-13 06:38] LABS: INR 2.3 (0.8-3.0); PROTHROMBIN TIME 27.3 SECONDS (9.7-12.8)
--- NOTE | 2019-07-13 06:42 | NUR ---
Report given to YOSVANY Cartwright.
[2019-07-13 06:44] LABS: CREATININE, serum 0.47 (0.66-1.25); POTASSIUM 4.3 mmol/L (3.4-5.0)
--- NOTE | 2019-07-13 09:19 | NUR ---
Pt awake and alert this morning, no C/O pain at this time, ambulatory in the room, sitting on the window bench, shift assessments complete, left Pt call light in reach, bed in lowest position.
--- NOTE | 2019-07-13 18:18 | NUR ---
Pt resting in the room today, has had no C/O pain throughout the day, Pt has no other complaints, VS have been stable.
--- NOTE | 2019-07-13 20:30 | NUR ---
Initial shift assessment done- denies pain, VSS, sitting in chair watching TV, 02 at 2L/nc, Lung sounds very decreased to right lobes, productive cough, Heaparin drip at 13cc/hr- waiting for results of hepXa that was just drawn-- Tele on, no requests at this time
[2019-07-14] VITALS (10 sets, daily range): BP systolic 112–139; BP diastolic 46–87; PULSE 72–90; TEMP 97.4–9802
[2019-07-14 04:24] LABS: HEMOGLOBIN 10.7 g/dl (13.5-18.0); MEAN CELL VOLUME 97 fl (80.0-100.0); MEAN CORPUSCULAR HEMOGLOBIN 31 pg (27.0-31.0); MEAN CORPUSCULAR HGB CONC 32 g/dl (33.0-37.0); MEAN PLATELET VOLUME 10.3 fl (7.4-10.4); PLATELET COUNT 240 K/mm3 (130-400); RED BLOOD COUNT 3.47 M/mm3 (4.20-5.60); REDCELL DISTRIBUTION WIDTH-CV 13.5 % (11.5-14.5)
[2019-07-14 04:25] LABS: HEMATOCRIT 33.5 % (42.0-52.0)
[2019-07-14 04:29] LABS: INR 1.8 (0.8-3.0); PROTHROMBIN TIME 21.2 SECONDS (9.7-12.8)
[2019-07-14 04:35] LABS: CALCIUM 9.1 mg/dL (8.4-10.2); CREATININE, serum 0.49 (0.66-1.25); POTASSIUM 4.1 mmol/L (3.4-5.0)
--- NOTE | 2019-07-14 06:33 | NUR ---
Denies pain, o2 at 2L/nc-sats 95%, Heparin drip at 15.5cc/hr- next Hepxa at 11 am, Tele on, not scoring per detox protocol-
--- NOTE | 2019-07-14 09:29 | NUR ---
Pt awake and alert upon entry, no C/O pain at this time, sitting up in the recliner, shift assessments complete, left Pt call light in reach.
--- NOTE | 2019-07-14 12:42 | NUR ---
Vancomycin Follow-up Pharmacy Note Current regimen: 1500 MG Q 12H Vancomycin trough: 6.15 Adjustments: Increasing dose to 2000 MG Q8H. Will continue to follow.
--- NOTE | 2019-07-14 18:14 | NUR ---
Pt resting in the room today, no C/O pain today, no thoer complaints noted. VS have remained stable.
--- NOTE | 2019-07-14 18:35 | NUR ---
Pt report recieved from Chay BAR at bedside. Pt is sitting in recliner with TV on and heparin infusing at 15.5ml/hr without complications. Call light within reach and male urinal at Pt side. Will continue to monitor.
--- NOTE | 2019-07-14 23:30 | NUR ---
Pt has had a peaceful shift and has remained in his recliner watching tv. Pt has used his male urinal and produced light junaid clear urine. Pt has denied pain during this shift and has had no s/s of distress noted. Call light remains at Pt side and fluids have been infusing without complications. Pt remains A&Ox4. Will continue to monitor.
--- NOTE | 2019-07-15 00:10 | NUR ---
Pt has become NPO at midnight and understands that he is not to eat or drink anything until his procedure has completed.
--- NOTE | 2019-07-15 02:04 | NUR ---
Pt was asleep when this property underwriter entered room to hang his next dose of Vanco IV. Pt was easily aroused for flushing of his Picc port which flushed easily. Pt noted to have about 625ML of light junaid urine in his male urinal. No s/s of distress noted. Call light within reach. Will continue to monitor.
[2019-07-15 04:03] VITALS: BP 131/79; PULSE 70; TEMP 97.8
[2019-07-15 07:20] LABS: BASO % 0.1 % (0.0-2.0); EOS % 0.2 % (0-4.0); GRAN # 7.2 (1.4-6.5); GRAN % 78.4 % (42.2-75.2); LYMPH # 1.1 (1.2-3.4); LYMPH % 12.1 % (20.0-51.0); MEAN CELL VOLUME 100 fl (80.0-100.0); MEAN CORPUSCULAR HGB CONC 31 g/dl (33.0-37.0); MEAN PLATELET VOLUME 10.8 fl (7.4-10.4); MONO # 0.8 (0.1-0.6); MONO % 8.6 % (1.7-9.3); PLATELET COUNT 196 K/mm3 (130-400); RED BLOOD COUNT 3.12 M/mm3 (4.20-5.60); REDCELL DISTRIBUTION WIDTH-CV 13.7 % (11.5-14.5)
[2019-07-15 07:23] VITALS: BP 122/74; PULSE 60; TEMP 98
[2019-07-15 07:26] LABS: HEMATOCRIT 31.3 % (42.0-52.0); HEMOGLOBIN 9.7 g/dl (13.5-18.0); MEAN CORPUSCULAR HEMOGLOBIN 31 pg (27.0-31.0)
[2019-07-15 07:27] LABS: INR 1.4 (0.8-3.0); PROTHROMBIN TIME 16.5 SECONDS (9.7-12.8)
[2019-07-15 07:41] LABS: CALCIUM 8.4 mg/dL (8.4-10.2); CREATININE, serum 0.6 (0.66-1.25); POTASSIUM 3.7 mmol/L (3.4-5.0)
--- NOTE | 2019-07-15 07:46 | NUR ---
Pt report given to Nirav BAR. Godfreyiring report tele notified Nadiya that Pt was having arrthymia. Pt assessed and VS WNL and no complaints of chest pain, pressure, palpitation, changes to respiratory status and no s/s of cardiac distress noted. Pt converted back into NSR during assessment. Pt has had no cardiac episodes during the night and has been sleeping peacefully and when needed to has been easily aroused. Pt has remained NPO since midnight for his procedure this AM.
[2019-07-15 11:45] VITALS: BP 118/54; PULSE 65; TEMP 97.8
--- NOTE | 2019-07-15 15:22 | NUR ---
Vocational School Teacher spoke with patient's fiancePalmira (ph#[phone]) to discuss discharge planning. Palmira advised patient is out of his duoneb and refills for his rescue inhaler. Palmira states [facility] assists with paying for these medications so they need to be sent to the [facility] in as soon as possible. KADY obtained hard copies of the prescriptions then faxed them to [facility] in @ fax#[phone]. SW called Palmira to update her that prescriptions had been sent. SW to continue to follow.
[2019-07-15 16:38] VITALS: BP 138/71; PULSE 116; TEMP 97.3
--- NOTE | 2019-07-15 18:55 | NUR ---
Pt report recieved from dayshift RN at bedside. Pt is sitting peacefully in recliner watching tv with no s/s of distress noted and call light at Pt side. IV fluids infusing without complications or issues. Will continue to monitor.
[2019-07-15 20:19] VITALS: BP 127/70; PULSE 93; TEMP 98.1
--- NOTE | 2019-07-15 23:22 | NUR ---
Pt resting peacefully in bed at this time with eyes closed and tv on with IV fluids infusing without complications or issues. Pt opens eyes and is easily aroused when this show card writer speaks Pt's name and touches Pt's shoulder. Pt reminded that he is to be NPO at midnight and is offered a change for snacks or beverages at this time. Pt states that he is fine and declines beverages or food. Pt denies pain or discomfort. Pt is A&Ox4 and has call light within reach. No s/s of distress noted. Will continue to monitor.
[2019-07-16] VITALS (13 sets, daily range): BP systolic 100–156; BP diastolic 60–88; PULSE 61–73; TEMP 97.4–98.9
--- NOTE | 2019-07-16 01:20 | NUR ---
Pt resting in recliner with eyes closed listening to headphones with the TV also on. Pt is easily aroused for changing of PICC IV lines due to time to change IV antibiotics that have just finished and the new round that was due to begin. Pt remains in stable condition with no s/s of distress noted. Will continue to monitor.
--- NOTE | 2019-07-16 05:43 | NUR ---
Pt is awake and sitting in recliner watching tv with IV infusing without complications or issues. Pt has had a restful night and has slept peacefully with no complaints of pain nor s/s of distress throughout the shift. Pt has remained NPO since midnight and heparin continues to infuse at 15.5ml per hour with this machine sign writer informed at shift report that the heparin is to continue to infuse until the unit is notified that staff are about to come take him to his procedure. Will continue to monitor.
--- NOTE | 2019-07-16 05:50 | NUR ---
Call light remains within reach
--- NOTE | 2019-07-16 06:16 | NUR ---
Consent form for thoracentesis reviewed with Pt, Pt signed consent, and this expert medical writer witnesses signature. Pt denies any questions or concerns about consent form or procedure.
--- NOTE | 2019-07-16 07:01 | NUR ---
Pt report given to Hmua BAR
[2019-07-16 07:38] LABS: HEMOGLOBIN 10.6 g/dl (13.5-18.0); MEAN CELL VOLUME 97 fl (80.0-100.0); MEAN CORPUSCULAR HEMOGLOBIN 30 pg (27.0-31.0); MEAN CORPUSCULAR HGB CONC 31 g/dl (33.0-37.0); MEAN PLATELET VOLUME 10.6 fl (7.4-10.4); PLATELET COUNT 206 K/mm3 (130-400); RED BLOOD COUNT 3.49 M/mm3 (4.20-5.60); REDCELL DISTRIBUTION WIDTH-CV 13.3 % (11.5-14.5)
[2019-07-16 07:40] LABS: HEMATOCRIT 33.8 % (42.0-52.0)
[2019-07-16 07:57] LABS: C-REACTIVE PROTEIN 0.8 mg/dL (0.0-0.9); CALCIUM 8.8 mg/dL (8.4-10.2); CREATININE, serum 0.55 (0.66-1.25); POTASSIUM 4.3 mmol/L (3.4-5.0)
[2019-07-16 08:17] LABS: INR 1.1 (0.8-3.0); PROTHROMBIN TIME 12.8 SECONDS (9.7-12.8)
--- NOTE | 2019-07-16 08:37 | NUR ---
Pt down to thoracentesis at this time.
--- NOTE | 2019-07-16 09:50 | NUR ---
Pt assessment complete. Pt is back from thoracentesis at this time. He is A/O x4. His breathing is even and unlabored on 2L O2 via NC. Pt reports recurrent SOB, no worse or better from before. Pt denies any pain. Bandaid to R side of lung CDI. POC discussed with patient who verbalizes understanding. Heparin not restarted per doctors verbal orders. Pt to remain NPO. Vancomycin infusing per pharmacy orders. Will continue to monitor.
[2019-07-16 11:04] LABS: EOS # 0.1 (0.0-0.7); EOS % 0.5 % (0-4.0); GRAN # 7.4 (1.4-6.5); LYMPH # 1.3 (1.2-3.4); LYMPH % 13.1 % (20.0-51.0); MONO # 0.8 (0.1-0.6); MONO % 8.5 % (1.7-9.3)
--- NOTE | 2019-07-16 13:50 | NUR ---
Pt down for procedure at this time.
--- NOTE | 2019-07-16 14:59 | NUR ---
Plan Coordinator spoke with patient's girlfriend, Palmira who reports she would like an update from Hospitalist. SW passed this along to Hospitalist who advised he would call her today if possible.
--- NOTE | 2019-07-16 16:31 | NUR ---
Pt report given to YOSVANY Chavez.
--- NOTE | 2019-07-16 17:15 | NUR ---
Patient is back from surgery. He has a chest tube to right side, to low suction. He is alert and oriented. His lungs are coarse and he is wheezing. Patient stated he is having stabbing pain to his right side but did not want pain medication. Denies nausea. Explained to patient that he is in a new room but same floor. No other changes at this time. Call light within reach.
--- NOTE | 2019-07-16 18:45 | NUR ---
Patient had 40ml from chest tube since getting back from surgery. Vitals are stable. Patient is eating and drinking. His lungs sound better than when he got back from surgery. No other changes at this time. Call light within reach.
[2019-07-17] VITALS (7 sets, daily range): BP systolic 108–153; BP diastolic 54–70; PULSE 61–73; TEMP 97.5–98.4
--- NOTE | 2019-07-17 02:54 | NUR ---
Patient has rested fairly well throughout the night. States pain 7-8/10 to right chest. PRN Fallon order received from Allie Carrington APRN. Administered this and patient states relief. Chest tube to right chest to 20mmHg suction. Bloody output noted. Dressing remains clean, dry, and intact. Patient noted to cough up sputum with small amounts of blood and clear sputum present. PICC to CURT. Heparin drip running. Next HepXa to be drawn at 0400. Patient currently at 2L via nasal cannula. Will continue to monitor.
[2019-07-17 04:29] LABS: BASO % 0.1 % (0.0-2.0); EOS % 0.1 % (0-4.0); GRAN # 12.2 (1.4-6.5); GRAN % 83.6 % (42.2-75.2); MEAN CELL VOLUME 97 fl (80.0-100.0); MEAN CORPUSCULAR HEMOGLOBIN 31 pg (27.0-31.0); MEAN CORPUSCULAR HGB CONC 32 g/dl (33.0-37.0); MEAN PLATELET VOLUME 10.2 fl (7.4-10.4); MONO # 1.2 (0.1-0.6); MONO % 8.4 % (1.7-9.3); PLATELET COUNT 222 K/mm3 (130-400); RED BLOOD COUNT 3.59 M/mm3 (4.20-5.60); REDCELL DISTRIBUTION WIDTH-CV 13.3 % (11.5-14.5)
[2019-07-17 04:30] LABS: HEMATOCRIT 34.7 % (42.0-52.0)
[2019-07-17 04:39] LABS: ALBUMIN 3.5 gm/dL (3.5-5.0); BILIRUBIN,TOTAL 0.5 mg/dL (0.0-1.0); CALCIUM 8.7 mg/dL (8.4-10.2); CREATININE, serum 0.59 (0.66-1.25); MAGNESIUM 2.4 mg/dL (1.6-2.3); POTASSIUM 4.6 mmol/L (3.4-5.0); TOTAL PROTEIN 6.5 gm/dL (6.4-8.2)
--- NOTE | 2019-07-17 04:51 | NUR ---
HepXa at 0.20. Rate currently at 15.5ml/hr. Protocol states to increase 1.5ml/hr. Rate set at 17ml/hr. Verified with Jonatan Jarrett RN.
--- NOTE | 2019-07-17 14:22 | NUR ---
The patient does have advanced directives in the EMR and they designate the patient's brother, Driss Victoria. SW informed the patient. He states he would like to designate his girlfriend, Palmira Herrera as primary agent and his brother, Driss Victoria as the alternate agent. KADY and the patient's nurse witnessed. A copy was placed in the chart and the original and copies were provided to the patient. Will continue to monitor.
--- NOTE | 2019-07-17 18:17 | NUR ---
Patient resting in bedside recliner at this time. Patient remains alert and oriented, answers questions appropriately. Chest tube to water seal with low intermittent suction. approximately 160 ml out during shift. Patient has c/o pain twice during shift, administered PRN pain medication per order. Patient denies further needs at this time, call light within reach.
--- NOTE | 2019-07-17 21:45 | NUR ---
Pt. sitting up in the chair at this time. Pt. is A&OX3, assessment complete. PICC to rt. upper arm patent. Heparin gtt infusing per orders. Chest tube to rt. chest x2 CDI. Waterseal noted to lis. Pt. denies pain or other needs at this time. Call light within reach.
--- NOTE | 2019-07-17 22:38 | NUR ---
HepXa 3.8 at goal range, not change needed at this time
[2019-07-18 05:59] VITALS: BP 118/64; PULSE 58; TEMP 97.8
[2019-07-18 06:40] LABS: HEMOGLOBIN 11.2 g/dl (13.5-18.0); MEAN CELL VOLUME 97 fl (80.0-100.0); MEAN CORPUSCULAR HEMOGLOBIN 31 pg (27.0-31.0); MEAN CORPUSCULAR HGB CONC 32 g/dl (33.0-37.0); MEAN PLATELET VOLUME 10.8 fl (7.4-10.4); PLATELET COUNT 195 K/mm3 (130-400); RED BLOOD COUNT 3.66 M/mm3 (4.20-5.60); REDCELL DISTRIBUTION WIDTH-CV 13.5 % (11.5-14.5)
[2019-07-18 06:51] LABS: HEMATOCRIT 35.4 % (42.0-52.0)
[2019-07-18 06:53] LABS: CALCIUM 8.9 mg/dL (8.4-10.2); CREATININE, serum 0.65 (0.66-1.25); POTASSIUM 3.6 mmol/L (3.4-5.0)
[2019-07-18 07:15] LABS: PROTHROMBIN TIME 11.9 SECONDS (9.7-12.8)
[2019-07-18 07:17] VITALS: BP 123/68; PULSE 60; TEMP 97.6
[2019-07-18 07:33] LABS: BAND 4 % (0-10); EOSINOPHIL 1 % (0-4); HYPOCHROMIA 2+; LYMPHOCYTE 20 % (20.0-51.0); NEUTROPHILS 57 % (42.0-75.2); PLATELET ESTIMATE NORMAL (NORMAL)
--- NOTE | 2019-07-18 08:00 | NUR ---
Patient sitting in chair. Patient reports improved pain. Chest tube to right chest with dark red fluid present in tubing. Chest tube to suction. Dressing was clean, dry, with no drainage. Edema to BLE +1. Lung sounds were coarse in all valenzuela. Denies further needs at this time.
[2019-07-18 11:35] VITALS: BP 129/70; PULSE 66; TEMP 98.4
[2019-07-18 15:52] VITALS: BP 124/66; PULSE 74; TEMP 98.4
--- NOTE | 2019-07-18 17:39 | NUR ---
Patient has done well throughout the day. Independent in room. Chest tube with small amount of dark bloody drainage present. Picc line to CURT without complications, heparin and antibiotics infusing per orders. Denies further needs at this time. Will report off to laundry housekeeping aide.
[2019-07-18 20:08] VITALS: BP 141/69; PULSE 80; TEMP 98.1
--- NOTE | 2019-07-18 21:15 | NUR ---
Pt doing well. Alert and oriented with VSS. Heart and lung sounds normal. On tele, in normal sinus. Bowel sounds aud all quad. Chest tube to right side, CD&I. On 20 of suction, red tinged drainage. Voiding ok. Pedal pulses present. Pt denies needs. Call light within reach, will continue to monitor
[2019-07-18 23:03] VITALS: BP 125/62; PULSE 69; TEMP 98
[2019-07-19 03:25] VITALS: BP 125/58; PULSE 61; TEMP 97.7
--- NOTE | 2019-07-19 06:33 | NUR ---
Pt has had uneventful night, denies needs. About 40ml output from chest tube. Call light within reach, will continue to monitor
[2019-07-19 06:53] LABS: MEAN CELL VOLUME 97 fl (80.0-100.0); MEAN CORPUSCULAR HEMOGLOBIN 31 pg (27.0-31.0); MEAN CORPUSCULAR HGB CONC 31 g/dl (33.0-37.0); MEAN PLATELET VOLUME 11.2 fl (7.4-10.4); PLATELET COUNT 194 K/mm3 (130-400); RED BLOOD COUNT 3.61 M/mm3 (4.20-5.60); REDCELL DISTRIBUTION WIDTH-CV 13.4 % (11.5-14.5)
[2019-07-19 06:58] VITALS: BP 125/78; PULSE 62; TEMP 98.2
[2019-07-19 07:06] LABS: CALCIUM 8.9 mg/dL (8.4-10.2); CREATININE, serum 0.51 (0.66-1.25); POTASSIUM 3.8 mmol/L (3.4-5.0)
[2019-07-19 08:31] LABS: BAND 1 % (0-10); EOSINOPHIL 2 % (0-4); LYMPHOCYTE 20 % (20.0-51.0); METAMYELOCYTE 1 % (0-0); MYELOCYTE 3 % (0-0); NEUTROPHILS 66 % (42.0-75.2); PLATELET ESTIMATE NORMAL (NORMAL)
--- NOTE | 2019-07-19 08:51 | NUR ---
PT UP TO RECLINER FOR BREAKFAST. PT IN NO DISTRESS. DENIES NEEDS. AM MEDS GIVEN ORDERED, PT REFUSED NICODERM PATCH. HEPARIN RUNNING @16 WILL ADJUST PER LAB RESULTS. CHEST TUBE BUBBLING AND INTACT.
--- NOTE | 2019-07-19 11:15 | NUR ---
PICC intact right upper arm with sterile dressing change done with insertion site cleansed with chloraprep x 1, chlorhexidine impregnated disk applied, skin prep, stat lock, and tegaderm applied, no signs or symptoms of IV complications noted. no concerns voiced. re-wrapped with mary anne to protect catheter.
[2019-07-19 11:50] VITALS: BP 126/73; PULSE 68; TEMP 98.6
--- NOTE | 2019-07-19 13:31 | NUR ---
Patient's radha, Palmira Herrera, called. States she has had cold and stress symptoms for the past week. Patient's fiance states she was told to notify the hospital that she was tested for COVID-19. States she would like to be updated with what we are planning to do for the patient, as she is his medical DPOA. warehouse packaging supervisor notified patient's significant other tested. Marlys spoke with who states we will continue to monitor patient at this time. Palmira, patient's significant other contacted by this RN ([phone]) and voices understanding that patient will continue to be monitored at this time.
--- NOTE | 2019-07-19 14:56 | NUR ---
The patient's fiance contacted KADY, left message. SW contacted the patient's fiance and she reports was tested for COVID-19 this day. She contacted the hospital to let them know. Will continue to monitor.
[2019-07-19 16:14] LABS: ARTERIAL BLD GAS O2 SATURATION 95.8 % (92-100); ARTERIAL BLD GAS TCO2 CT 34.1; ARTERIAL BLOOD GAS BASE EXCESS 7.1 (-2-2); ARTERIAL BLOOD GAS HCO3 32.6 meq/L (22-26); ARTERIAL BLOOD GAS PCO2 49.6 mmHg (35-45); ARTERIAL BLOOD GAS PO2 81.5 mmHg (80-100); ARTERIAL BLOOD GAS pH 7.44 (7.35-7.45)
[2019-07-19 16:28] VITALS: BP 140/67; PULSE 75; TEMP 99.1
--- NOTE | 2019-07-19 19:02 | NUR ---
Report to Kyaw BAR.
[2019-07-19 19:54] VITALS: BP 147/64; PULSE 79; TEMP 98.3
--- NOTE | 2019-07-19 20:00 | NUR ---
Report received. Assumed care for night shift supervisor. Assessment complete. VS stable. A&Ox3. Sitting up in chair. Denies pain/shortness of breath/nausea. Lungs with occasional ins/exp wheezing. O2@2L/NC. Dressing to right chest CDI-gauze/foam tape. PICC to right upper arm-flushes well. NS@75ml/hr. Heparin drip @15ml/hr. HepXa due at 2300. Plan of care discussed for this shift to include lab draws/adjusting heparin/pain meds. Denies questions/concerns. Call light in reach. Will monitor.
[2019-07-20] VITALS (7 sets, daily range): BP systolic 103–137; BP diastolic 46–85; PULSE 66–78; TEMP 97.4–98.4
--- NOTE | 2019-07-20 | NUR ---
Sitting in chair/eyes closed. HepXa 0.40IU/ml. Heparin drip decreased by 1ml per dr order. Next HepXa due at 0500. Will monitor.
[2019-07-20 07:11] LABS: HEMOGLOBIN 11.5 g/dl (13.5-18.0); MEAN CELL VOLUME 95 fl (80.0-100.0); MEAN CORPUSCULAR HEMOGLOBIN 31 pg (27.0-31.0); MEAN CORPUSCULAR HGB CONC 32 g/dl (33.0-37.0); MEAN PLATELET VOLUME 10.1 fl (7.4-10.4); PLATELET COUNT 194 K/mm3 (130-400); RED BLOOD COUNT 3.74 M/mm3 (4.20-5.60); REDCELL DISTRIBUTION WIDTH-CV 13.5 % (11.5-14.5)
[2019-07-20 07:21] LABS: CALCIUM 9.2 mg/dL (8.4-10.2); CREATININE, serum 0.49 (0.66-1.25); POTASSIUM 4.3 mmol/L (3.4-5.0)
[2019-07-20 07:26] LABS: HEMATOCRIT 35.6 % (42.0-52.0)
[2019-07-20 08:40] LABS: PROTHROMBIN TIME 11.8 SECONDS (9.7-12.8)
[2019-07-20 09:06] LABS: EOSINOPHIL 2 % (0-4); LYMPHOCYTE 14 % (20.0-51.0); METAMYELOCYTE 2 % (0-0); MYELOCYTE 4 % (0-0); NEUTROPHILS 67 % (42.0-75.2)
[2019-07-20 09:07] LABS: PLATELET ESTIMATE NORMAL (NORMAL)
--- NOTE | 2019-07-20 18:51 | NUR ---
Patient has done well througout the day. Minimal needs. Independent in room. Heparin and fluids infusing per orders. Denies pain. Chest tube site is CDI. Denies further needs at this time. Will report off to manufacturing shift supervisor.
[2019-07-21 03:31] VITALS: BP 121/72; PULSE 61; TEMP 97.7
--- NOTE | 2019-07-21 04:19 | NUR ---
Patient has had a rough time sleeping tonight. Heparin drip continues. HepXa at 1900 was 0.23. Drip increased 1.5ml/hr per protocol. At 0230 HepXa was 0.39. This is a therapeutic level and no change was made per protocol. Patient states he has just had a hard time getting comfortable and doesn't appear to sleep for longer than an hour at a time. Patient denies pain. Lung sounds are coarse throughout all valenzuela. Dressing to right chest CDI. Will continue to monitor patient.
[2019-07-21 08:15] VITALS: BP 127/66; PULSE 81; TEMP 98
--- NOTE | 2019-07-21 08:40 | NUR ---
PATIENT SITTING UP IN THE BEDSIDE CHAIR. PATIENT IS DROWSY BUT A&OX4. VSS. RIGHT-SIDE CHEST TUBE SITE DRESSED WITH AN OCCLUSIVE DRESSING AND IS CD&I. PATIENT STATES THAT HE HAS SOME WEAKNESS. ALL LUNG ROBLES COARSE UPON AUSCULTATION. PATIENT HAS A PRODUCTIVE COUGH WITH THICK WHITE MUCOUS. 2+ PITTING-EDEMA TO BLE. PICC LINE TO RUE WITH HEPARIN INFUSING AT 16 ML/HR. PATIENT DENIES ANY PAIN AT THIS TIME. CALL LIGHT WITHIN REACH.
[2019-07-21 09:19] LABS: CALCIUM 9.3 mg/dL (8.4-10.2); CREATININE, serum 0.59 (0.66-1.25); POTASSIUM 3.9 mmol/L (3.4-5.0)
[2019-07-21 09:25] LABS: BASO % 0.2 % (0.0-2.0); EOS # 0.2 (0.0-0.7); EOS % 1.7 % (0-4.0); GRAN # 6.3 (1.4-6.5); GRAN % 64.3 % (42.2-75.2); HEMOGLOBIN 11.7 g/dl (13.5-18.0); LYMPH # 1.9 (1.2-3.4); LYMPH % 19.1 % (20.0-51.0); MEAN CELL VOLUME 96 fl (80.0-100.0); MEAN CORPUSCULAR HEMOGLOBIN 31 pg (27.0-31.0); MEAN CORPUSCULAR HGB CONC 32 g/dl (33.0-37.0); MONO % 10.5 % (1.7-9.3); PLATELET COUNT 204 K/mm3 (130-400); RED BLOOD COUNT 3.83 M/mm3 (4.20-5.60); REDCELL DISTRIBUTION WIDTH-CV 13.6 % (11.5-14.5)
[2019-07-21 09:28] LABS: HEMATOCRIT 36.9 % (42.0-52.0)
[2019-07-21 09:55] LABS: INR 1.2 (0.8-3.0); PROTHROMBIN TIME 13.8 SECONDS (9.7-12.8)
--- NOTE | 2019-07-21 10:14 | NUR ---
HEPXA RESULT: 0.31. NO CHANGE NEEDED. HEPARIN INFUSING AT 16 ML/HR. NEXT HEPXA RE-DRAW LAB AT 1445.
[2019-07-21 11:07] VITALS: BP 121/70; PULSE 62; TEMP 98.1
--- NOTE | 2019-07-21 14:46 | NUR ---
PATIENT HEPXA RESULT OF 0.46. HEPARIN DRIP ADJUSTED PER PROTOCOL AND NOW INFUSING AT 15 ML/HR. NEXT HEPXA LAB RE-DRAW AT 2044.
[2019-07-21 16:18] VITALS: BP 117/65; PULSE 67; TEMP 97.8
--- NOTE | 2019-07-21 19:01 | NUR ---
REPORT GIVEN TO YOSVANY GUARDADO.
[2019-07-21 20:35] VITALS: BP 117/56; PULSE 74; TEMP 97.6
[2019-07-22 00:03] VITALS: BP 115/65; PULSE 70; TEMP 98
[2019-07-22 04:10] VITALS: BP 108/67; PULSE 63; TEMP 97.8
--- NOTE | 2019-07-22 05:17 | NUR ---
Patient rested well throughout the night. HepXa 0.46 at 2044, decreased by 1ml/hr. HepXa 0.49 at 0430, heparin decreased by 1ml/hr. HepXa to be rechecked at 1045. Rate changes verified by YOSVANY Chong. Patient denies pain. Dressing to right chest CDI. PICC continues to CURT. Blood return and flushes with ease. Independent with transfers and ambulation. Will continue to monitor.
--- NOTE | 2019-07-22 08:00 | NUR ---
Patient sitting up in recliner. Alert and oriented x 3. Assessment complete. PICC line to CURT with heparin and fluids infusing per orders. Edema to BLE, +1 pitting, noted. Occlusive dressing to previous chest tube site is CDI. Denies further needs at this time.
[2019-07-22 08:33] VITALS: BP 119/58; PULSE 85; TEMP 98.1
[2019-07-22] MEDS ORDERED: COUMADIN 5MG5 MG/TAB PO (11:01)
[2019-07-22] MEDS ORDERED: MEDROL 4MG DOSPA4 MG PO (11:02)
[2019-07-22] MEDS ORDERED: LOVENOX 100100 MG/ML SQ (11:04)
[2019-07-22 11:23] LABS: INR 1.1 (0.8-3.0); PROTHROMBIN TIME 13.4 SECONDS (9.7-12.8)
[2019-07-22 11:47] VITALS: BP 123/75; PULSE 68; TEMP 98.7
[2019-07-22] MEDS ORDERED: LOPRESSOR 225 MG/TAB PO (12:16)
--- NOTE | 2019-07-22 12:37 | NUR ---
The patient is to tentatively discharge home today, 07/21 with his girlfriend Palmira. The patient was needing lovenox at discharge. Due to the esparza, SW collaborated with pharmacy and they assisted the patient to get the lovenox at a greatly discounted esparza. KADY met with the patient and he was agreeable to this. There are no additional needs at this time.
--- NOTE | 2019-07-22 13:16 | NUR ---
Tele called, patient had 18 beat run of vtach, notified hospitalist.
--- NOTE | 2019-07-22 14:10 | NUR ---
Discharge education provided to patient. PICC line removed by Jayleen BAR. Post PICC line removal instructions reviewed with patient. Educted on all new meds and follow up appointments. Educated on how to administer lovenox injections and patient demonstrated back teaching. All questions answered. Instructions reviewed with patients alance. Dressing to [facility] PICC is CDI. Patient out by wheelchair with surgical staff.
== END 2019-07-22 14:10 | disposition home or self-care (01) | DRG 164 ==
LOC: COL.ER 12:47 → MEDICAL 14:40 → SURG 14:40 → MEDICAL 17:00 → SURG 07-16 16:38
PROVIDERS: Emergency Medicine; Nurse Practitioner Family; Physician Assistant; Student in an Organized Health Care Education/Training Program; Surgery; ADMIT Internal Medicine
PROC: 02HV33Z Insertion of Infusion Device into Superior Vena Cava, Percutaneous Approach (ICD-10-PCS; 2019-07-12)
PROC: 0WJ93ZZ Inspection of Right Pleural Cavity, Percutaneous Approach (ICD-10-PCS; 2019-07-15)
PROC: 0BCN4ZZ Extirpation of Matter from Right Pleura, Percutaneous Endoscopic Approach (ICD-10-PCS; principal; 2019-07-16 14:30)
DX: J94.2 Hemothorax (principal); I47.2 Ventricular tachycardia; E87.3 Alkalosis; Z95.2 Presence of prosthetic heart valve; J44.9 Chronic obstructive pulmonary disease, unspecified; Z86.73 Personal history of transient ischemic attack (TIA), and cerebral infarction without residual deficits; K21.9 Gastro-esophageal reflux disease without esophagitis; Z79.01 Long term (current) use of anticoagulants; D64.9 Anemia, unspecified; I48.91 Unspecified atrial fibrillation; F17.200 Nicotine dependence, unspecified, uncomplicated; F10.10 Alcohol abuse, uncomplicated; I27.20 Pulmonary hypertension, unspecified; D72.828 Other elevated white blood cell count; T38.0X5A Adverse effect of glucocorticoids and synthetic analogues, initial encounter; R73.9 Hyperglycemia, unspecified
CPT/HCPCS: 99223-AI; 99232-AI; 99233-AI; 99239; A7041; C1729; C1751; J1100; J1170; J1644; J1650; J1815; J1956; J2250; J2405; J2543; J2704; J2930; J3010; J3370; J7030; J7040; J7050; J7120; J7512; Q9967

== ENCOUNTER → 2019-07-24 | Outpatient (CLI) | payer OTHER ==
[~2019-07-24] MED LIST changes: +LOVENOX 100100 MG/ML SQ
[2019-07-24 12:52] LABS: INR 2.6 (0.8-3.0); PROTHROMBIN TIME 31.3 SECONDS (9.7-12.8)
[2019-07-24 13:08] LABS: CALCIUM 9.7 mg/dL (8.4-10.2); CREATININE, serum 0.79 (0.66-1.25); MAGNESIUM 2.3 mg/dL (1.6-2.3); POTASSIUM 4.9 mmol/L (3.4-5.0)
== END ==
LOC: COL.LAB 11:52
PROVIDERS: Internal Medicine
DX: Z95.2 Presence of prosthetic heart valve (principal)

== ENCOUNTER → 2019-11-14 | Outpatient (CLI) | payer OTHER | LOC: COL.RAD 09:52 | DX: Z02.71 Encounter for disability determination (principal) ==

== ENCOUNTER 2020-08-14 10:27 | Outpatient (RCR) | payer MEDICAID | END 2020-08-25 13:35 | disposition home or self-care (01) | LOC: MKS.ESL.PT 10:27 | DX: I63.9 Cerebral infarction, unspecified (principal); J44.9 Chronic obstructive pulmonary disease, unspecified ==

== ENCOUNTER 2021-01-26 12:43 | Emergency (ER) | payer MEDICAID ==
[~2021-01-26] VITALS: Ht 182.9 cm; Wt 100.0 kg
[2021-01-26 12:56] VITALS: TEMP 98
[2021-01-26 13:17] LABS: BASO % 0.2 % (0.0-2.0); EOS % 0.1 % (0-4.0); GRAN % 88.9 % (42.2-75.2); HEMATOCRIT 29.7 % (42.0-52.0); HEMOGLOBIN 9.8 g/dl (13.5-18.0); LYMPH # 0.6 K/mm3 (1.2-3.4); LYMPH % 4.2 % (20.0-51.0); MEAN CELL VOLUME 97 fl (80.0-100.0); MEAN CORPUSCULAR HEMOGLOBIN 32 pg (27.0-31.0); MEAN CORPUSCULAR HGB CONC 33 g/dl (33.0-37.0); MEAN PLATELET VOLUME 9.4 fl (7.4-10.4); MONO # 0.7 K/mm3 (0.1-0.6); MONO % 5.3 % (1.7-9.3); PLATELET COUNT 215 K/mm3 (130-400); RED BLOOD COUNT 3.07 M/mm3 (4.20-5.60); REDCELL DISTRIBUTION WIDTH-CV 12.8 % (11.5-14.5)
[2021-01-26 13:33] LABS: INR 3.3 (0.8-3.0); PROTHROMBIN TIME 36.9 SECONDS (9.7-12.8)
[2021-01-26 13:38] LABS: ALBUMIN 3.4 gm/dL (3.5-5.0); BILIRUBIN,TOTAL 0.8 mg/dL (0.2-1.2); CALCIUM 9.2 mg/dL (8.4-10.2); CREATININE, serum 0.74 mg/dL (0.72-1.25); POTASSIUM 4.2 mmol/L (3.5-4.5)
[2021-01-26 13:46] LABS: TROPONIN-I 0.104 ng/mL (0.00-0.033)
[2021-01-26 15:10] VITALS: BP 119/80; PULSE 84
== END 2021-01-26 15:10 | disposition short-term general hospital (02) ==
LOC: COL.ER 12:43
PROVIDERS: Emergency Medicine
DX: S06.330A Contusion and laceration of cerebrum, unspecified, without loss of consciousness, initial encounter (principal); D68.8 Other specified coagulation defects; J44.9 Chronic obstructive pulmonary disease, unspecified; Z20.822 Contact with and (suspected) exposure to COVID-19; Z79.899 Other long term (current) drug therapy; W01.198A Fall on same level from slipping, tripping and stumbling with subsequent striking against other object, initial encounter; Y92.009 Unspecified place in unspecified non-institutional (private) residence as the place of occurrence of the external cause
CPT/HCPCS: J1170; J1953; J2270; J2405; J3430; J7040

== ENCOUNTER → 2021-05-21 | Outpatient (CLI) | payer MEDICAID | LOC: COL.RAD 09:50 | DX: J90 Pleural effusion, not elsewhere classified (principal); J44.9 Chronic obstructive pulmonary disease, unspecified; K76.0 Fatty (change of) liver, not elsewhere classified; K81.9 Cholecystitis, unspecified; K57.30 Diverticulosis of large intestine without perforation or abscess without bleeding; R63.4 Abnormal weight loss; D59.9 Acquired hemolytic anemia, unspecified; R91.8 Other nonspecific abnormal finding of lung field; J98.11 Atelectasis; L90.5 Scar conditions and fibrosis of skin; R16.1 Splenomegaly, not elsewhere classified | CPT/HCPCS: Q9967 ==

== ENCOUNTER → 2021-06-04 | Outpatient (CLI) | payer MEDICAID ==
[~2021-06-04] VITALS: Ht 182.9 cm; Wt 91.4 kg
[~2021-06-04] MED LIST changes: +ATIVAN 0.50.5 MG/TAB PO; +ATROVENT I0.2 MG/1 M IH; +B COMPLEX & B121 TAB PO; +BYSTOLIC10 MG PO; +CALCIUM-MAGNES1 EAC1 PO; +CYMBALTA 20MG20 MG PO; +ECHINACEA400 MG PO; +FERROUSAL325 MG PO; +PRIL40 PO; +PROZAC40 MG PO; +ROXICODONE 55 MG/TAB PO; +SENNA-S 50 MG-81 TAB PO; +TYLENOL 500MG500 MG PO; +VITAMIN D31000 I1 PO; +VITAMINC1000TA PO; +ZANAFLEX2 MG PO
[2021-06-04 07:36] VITALS: BP 100/61; PULSE 76; TEMP 98.2
[2021-06-04 08:59] VITALS: BP 96/49; PULSE 73
[2021-06-04 09:15] VITALS: BP 105/62; PULSE 69
[2021-06-04 09:30] VITALS: BP 110/62; PULSE 67
== END ==
LOC: COL.RAD 06:39
DX: M47.816 Spondylosis without myelopathy or radiculopathy, lumbar region (principal); M43.16 Spondylolisthesis, lumbar region; M51.26 Other intervertebral disc displacement, lumbar region; M48.061 Spinal stenosis, lumbar region without neurogenic claudication
CPT/HCPCS: A9575; J0330; J2250; J2704

== ENCOUNTER 2021-06-08 13:40 | Outpatient (RCR) | payer MEDICAID ==
[2021-06-08] VITALS (10 sets, daily range): BP systolic 101–117; BP diastolic 55–68; PULSE 68–78; TEMP 97.6–98.4
[~2021-06-08 13:40] MED LIST changes: -PROZAC40 MG PO
[2021-06-08] MEDS ORDERED: PROZAC40 MG PO (15:34)
--- NOTE | 2021-06-08 18:00 | NUR ---
Report to Gerardo Grullon.
== END 2021-06-08 19:43 | disposition home or self-care (01) ==
LOC: EUO 13:40
DX: D59.9 Acquired hemolytic anemia, unspecified (principal)
CPT/HCPCS: J7050; P9016

== ENCOUNTER 2021-06-17 10:57 | Inpatient (IN) | payer MEDICARE, MEDICAID ==
[~2021-06-17] VITALS: Ht 182.9 cm; Wt 95.8 kg
[2021-06-17] VITALS (241 sets, daily range): BP systolic 97–103; BP diastolic 53–61; PULSE 64–69; TEMP 95.9–97.6; O2SAT 80–100
[~2021-06-17 10:57] MED LIST changes: +PROZAC40 MG PO
[2021-06-17 11:38] LABS: BASO % 0.3 % (0.0-2.0); GRAN % 74.8 % (42.2-75.2); HEMATOCRIT 23.6 % (42.0-52.0); HEMOGLOBIN 7.7 g/dl (13.5-18.0); LYMPH # 0.8 K/mm3 (1.2-3.4); LYMPH % 19.8 % (20.0-51.0); MEAN CELL VOLUME 81 fl (80.0-100.0); MEAN CORPUSCULAR HEMOGLOBIN 26 pg (27-31); MEAN CORPUSCULAR HGB CONC 33 g/dl (33.0-37.0); MEAN PLATELET VOLUME 10.2 fl (7.4-10.4); MONO # 0.2 K/mm3 (0.1-0.6); MONO % 4.6 % (1.7-9.3); PLATELET COUNT 150 K/mm3 (130-400); RED BLOOD COUNT 2.91 M/mm3 (4.20-5.60); REDCELL DISTRIBUTION WIDTH-CV 17.9 % (11.5-14.5)
[2021-06-17 11:40] LABS: COLLECTION METHOD CLEAN CATCH
[2021-06-17 11:43] LABS: ALBUMIN 2.6 gm/dL (3.5-5.0); BILIRUBIN,TOTAL 1.5 mg/dL (0.2-1.2); CALCIUM 8.3 mg/dL (8.4-10.2); CREATININE, serum 0.9 mg/dL (0.72-1.25); POTASSIUM 4.5 mmol/L (3.5-4.5); TOTAL PROTEIN 7.7 gm/dL (6.2-8.1)
[2021-06-17 11:48] LABS: TROPONIN-I 0.026 ng/mL (0.00-0.033)
[2021-06-17 12:05] LABS: PH 6 (5-8); URINE APPEARANCE Hazy (CLEAR/HAZY); URINE BACTERIA Rare /hpf (NONE SEEN); URINE BILIRUBIN Negative (NEGATIVE); URINE BLOOD 3+ (NEGATIVE); URINE COLOR Amber (YELLOW); URINE GLUCOSE Negative (NEGATIVE); URINE KETONE 1+ (NEGATIVE); URINE LEUKOCYTE ESTERASE Negative (NEGATIVE); URINE NITRATE Negative (NEGATIVE); URINE PROTEIN(semi-quant) 2+ (NEGATIVE); URINE RBC >50 /hpf (0-2); URINE UROBILINOGEN >=4.0 (NEGATIVE)
[2021-06-17 13:40] LABS: INR 12.2 (0.8-3.0); PROTHROMBIN TIME 139.2 SECONDS (9.7-12.8)
[2021-06-17 15:08] LABS: OSMOLALITY-URINE random 507 Osm/kg (50-1200)
[2021-06-17 16:30] LABS: HEMATOCRIT 21.6 % (42.0-52.0)
[2021-06-17 16:57] LABS: C-REACTIVE PROTEIN 11.38 mg/dL (0.00-0.50); CALCIUM 8.1 mg/dL (8.4-10.2); CREATININE, serum 1.01 mg/dL (0.72-1.25); MAGNESIUM 1.7 mg/dL (1.6-2.6); POTASSIUM 4.3 mmol/L (3.5-4.5)
--- NOTE | 2021-06-17 17:15 | NUR ---
PATIENT ARRIVES FROM ED. HE IS ABLE TO STAND AND AMBULATE TO THE BED WITH ASSIST OF ONE NURSE. HE IS CURRENTLY ON 3L OXYGEN VIA NASAL CANNULA. PATIENT IS ORIENTED TO THE ROOM AND CALL LIGHT. ENCOURAGED TO CALL WITH ALL NEEDS.
--- NOTE | 2021-06-17 17:30 | NUR ---
NO MRSA SWAB PERFORMED D/T RHINOROCKET IN LEFT NARE AND GAUZE OVER BOTH NARES.
[2021-06-17 17:33] LABS: MONOSCREEN NEGATIVE
[2021-06-17] MEDS ORDERED: BREO ELLIPTA 21 EACH IH (17:37)
[2021-06-17] MEDS ORDERED: LASIX 40MG TABL40 MG PO (17:38)
[2021-06-17] MEDS ORDERED: K-DUR 10 MEQ T10 MEQ PO (17:38)
[2021-06-17] MEDS ORDERED: K-TAB20 PO (18:02)
[2021-06-17 19:07] LABS: CALCIUM 7.9 mg/dL (8.4-10.2); CREATININE, serum 0.99 mg/dL (0.72-1.25); POTASSIUM 4.1 mmol/L (3.5-4.5)
--- NOTE | 2021-06-17 19:55 | NUR ---
REPORT GIVEN TO YOSVANY JOHNSON
--- NOTE | 2021-06-17 20:48 | NUR ---
Attempted to urinate. Unsuccessful. Will bladder scan. Assessment complete and charted.
[2021-06-17 23:30] LABS: INR 2.4 (0.8-3.0)
[2021-06-17 23:38] LABS: CALCIUM 8.2 mg/dL (8.4-10.2); CREATININE, serum 1.05 mg/dL (0.72-1.25); POTASSIUM 3.9 mmol/L (3.5-4.5)
[2021-06-18] VITALS (692 sets, daily range): BP systolic 87–124; BP diastolic 51–72; PULSE 66–78; TEMP 96.7–98; O2SAT 74–100
[2021-06-18 02:23] LABS: CALCIUM 8.2 mg/dL (8.4-10.2); CREATININE, serum 0.92 mg/dL (0.72-1.25); POTASSIUM 3.6 mmol/L (3.5-4.5)
--- NOTE | 2021-06-18 04:12 | NUR ---
Patient reports feeling poorly. When asked to describe symptoms patient reports "Kari felt the same shitty way for the last 5 months." Reports weakness, pain in back, inability to rest. Offered patient PRN oxycodone. Assisted patient back into bed, no difficulty with transfer. VS stable. Recently received breathing tx. Educated to report any new symptoms. Call light in reach.
[2021-06-18 07:00] LABS: BASO % 0.3 % (0.0-2.0); EOS % 0.3 % (0.0-4.0); GRAN # 2.3 K/mm3 (1.4-6.5); GRAN % 72.1 % (42.2-75.2); INR 1.9 (0.8-3.0); LYMPH # 0.6 K/mm3 (1.2-3.4); LYMPH % 19.4 % (20.0-51.0); MEAN CELL VOLUME 80 fl (80.0-100.0); MEAN CORPUSCULAR HGB CONC 33 g/dl (33.0-37.0); MEAN PLATELET VOLUME 10.6 fl (7.4-10.4); MONO # 0.2 K/mm3 (0.1-0.6); MONO % 7.6 % (1.7-9.3); PLATELET COUNT 117 K/mm3 (130-400); PROTHROMBIN TIME 20.7 SECONDS (9.7-12.8); RED BLOOD COUNT 2.78 M/mm3 (4.20-5.60)
[2021-06-18 07:02] LABS: HEMATOCRIT 22.2 % (42.0-52.0); HEMOGLOBIN 7.3 g/dl (13.5-18.0); MEAN CORPUSCULAR HEMOGLOBIN 26 pg (27-31)
[2021-06-18 07:13] LABS: ALBUMIN 2.4 gm/dL (3.5-5.0); BILIRUBIN,TOTAL 1.3 mg/dL (0.2-1.2); CALCIUM 8.1 mg/dL (8.4-10.2); CREATININE, serum 0.84 mg/dL (0.72-1.25); POTASSIUM 3.7 mmol/L (3.5-4.5); TOTAL PROTEIN 7.3 gm/dL (6.2-8.1)
--- NOTE | 2021-06-18 07:31 | NUR ---
Report given to YOSVANY Mendez
--- NOTE | 2021-06-18 08:52 | NUR ---
REPORT RECEIVED FROM YOSVANY JOHNSON. PT IN CONTACT/DROPLET PRECAUTIONS DUE TO PENDING GI AND RESPIRATORY PANELS. PT CONTINUES TO BE HYPONATREMIC; NO FREE WATER. PT WEARS 5L VIA SIMPLE MASK; WEARS 3L AT BASELINE. PT ALERT AND ORIENTED. 20G PIV TO LEFT WRIST. 18G PIV TO RIGHT FOREARM. PT OFFERS NO COMPLAINTS AT THIS TIME.
[2021-06-18 10:14] LABS: CLOSTRIDIUM DIFF A/B NEG; CLOSTRIDIUM DIFF A/B INTERP No C.diff present
[2021-06-18 10:29] LABS: CALCIUM 8.1 mg/dL (8.4-10.2); CREATININE, serum 0.82 mg/dL (0.72-1.25); POTASSIUM 3.7 mmol/L (3.5-4.5)
--- NOTE | 2021-06-18 15:53 | NUR ---
latex foam worker met with patient to discuss discharge planning. Patient states that he resides at home and his partner (Palmira [phone]) lives in his home part of the time and provides assistance with his medication management. Patient states that he is independent with his activities of daily living and does not need additional resources in the home. Patient's primary care provider is Dr Ferraro and states that his insurances cover the costs of his prescriptions. Patient plans to return home upon discharge. Patient plans to return home upon discharge.
[2021-06-18 16:11] LABS: HEPATITIS B SURFACE ANTIBODY <2.0 (()); HEPATITIS B SURFACE ANTIGEN Negative (Negative); HEPATITIS C VIRUS ANTIBODY Negative (Negative)
[2021-06-18 18:18] LABS: CALCIUM 8.1 mg/dL (8.4-10.2); CREATININE, serum 0.82 mg/dL (0.72-1.25); POTASSIUM 3.5 mmol/L (3.5-4.5)
--- NOTE | 2021-06-18 20:03 | NUR ---
Palmira called for updates. Updates provided.
--- NOTE | 2021-06-18 20:22 | NUR ---
Patient reporting anxiety. Request home lorazepam. Spoke with Dr. Romero. Order added. Will provide to patient. Assessment complete and charted. Patient in chair. Call light in reach.
[2021-06-19] VITALS (794 sets, daily range): BP systolic 90–123; BP diastolic 56–76; PULSE 68–89; TEMP 97.8–98.3; O2SAT 77–100
[2021-06-19 05:48] LABS: MEAN CELL VOLUME 82 fl (80.0-100.0); MEAN CORPUSCULAR HGB CONC 32 g/dl (33.0-37.0); MEAN PLATELET VOLUME 10.3 fl (7.4-10.4); PLATELET COUNT 107 K/mm3 (130-400); RED BLOOD COUNT 2.72 M/mm3 (4.20-5.60); REDCELL DISTRIBUTION WIDTH-CV 17.9 % (11.5-14.5)
[2021-06-19 05:55] LABS: INR 2.7 (0.8-3.0); PROTHROMBIN TIME 29.7 SECONDS (9.7-12.8)
[2021-06-19 05:57] LABS: HEMATOCRIT 22.4 % (42.0-52.0); HEMOGLOBIN 7.1 g/dl (13.5-18.0); MEAN CORPUSCULAR HEMOGLOBIN 26 pg (27-31)
[2021-06-19 06:05] LABS: ALBUMIN 2.3 gm/dL (3.5-5.0); BILIRUBIN,TOTAL 1.2 mg/dL (0.2-1.2); CALCIUM 8.3 mg/dL (8.4-10.2); CREATININE, serum 0.75 mg/dL (0.72-1.25); MAGNESIUM 1.8 mg/dL (1.6-2.6); POTASSIUM 3.7 mmol/L (3.5-4.5); TOTAL PROTEIN 6.9 gm/dL (6.2-8.1)
[2021-06-19 06:18] LABS: BAND 18 % (0-10); HYPOCHROMIA 2+; LYMPHOCYTE 14 % (20.0-51.0); NEUTROPHILS 66 % (42.0-75.2); PLATELET ESTIMATE DECREASED (NORMAL)
[2021-06-19 06:19] LABS: ANISOCYTOSIS 1+
--- NOTE | 2021-06-19 06:55 | NUR ---
Patient having increased trouble breathing this AM. Called Dr. Rehman at [facility]. CRX ordered. Required breathing treatments throughout night. Up in chair this AM. Call light in reach.
--- NOTE | 2021-06-19 07:14 | NUR ---
REPORT GIVEN TO RADHA BAR
--- NOTE | 2021-06-19 07:29 | NUR ---
REPORT RECEIVED FROM YOSVANY JOHNSON. REPORTS THAT PT HAD 12 BEAT RUN OF VTACH OVERNIGHT; ASYMPTOMATIC AT TIME OF EVENT. PT IS COUGHING UP COPIOUS AMOUNTS OF SPUTUM. 20G PIV TO LEFT WRIST; SALINE LOCKED. 18G PIV TO RIGHT FOREARM; SALINE LOCKED. CONTINUE ON DROPLET/CONTACT PRECAUTIONS DUE TO PENDING RESPIRATORY PANEL. RHINO-ROCKET REMAINS IN LEFT NARE; NO NEW BLEEDING PRESENT. NO FREE WATER DUE TO LOW SODIUM. PT SITTING UP IN CHAIR AT THIS TIME; ALERT AND ORIENTED. OFFERS NO COMPLAINTS.
--- NOTE | 2021-06-19 11:44 | NUR ---
RHINOROCKET REMOVED BY THIS NURSE WITH PERMISSION FROM ENT. NO AYO BLOOD PRESENT WITH REMOVAL. PT INSTRUCTED TO NOT BLOW NOSE; ONLY WIPE. PT ALSO INSTRUCTED TO ALERT STAFF IF NOSE BLEED BEGINS AGAIN. PT VERBALIZED UNDERSTANDING.
--- NOTE | 2021-06-19 19:33 | NUR ---
Assessment complete and charted. Denies needs at this time. Call light in reach. Returned to bed.
[2021-06-20] VITALS (816 sets, daily range): BP systolic 126–142; BP diastolic 64–97; PULSE 75–90; TEMP 97.4–98.6; O2SAT 73–100
--- NOTE | 2021-06-20 04:49 | NUR ---
Patient care, medication administration and nursing documentation occurred during a Daylight Savings Time Change.
[2021-06-20 06:11] LABS: MEAN CELL VOLUME 82 fl (80.0-100.0); MEAN CORPUSCULAR HGB CONC 30 g/dl (33.0-37.0); MEAN PLATELET VOLUME 10.6 fl (7.4-10.4); PLATELET COUNT 112 K/mm3 (130-400); RED BLOOD COUNT 2.36 M/mm3 (4.20-5.60); REDCELL DISTRIBUTION WIDTH-CV 17.8 % (11.5-14.5)
[2021-06-20 06:16] LABS: PROTHROMBIN TIME 45.5 SECONDS (9.7-12.8)
[2021-06-20 06:30] LABS: CALCIUM 8.3 mg/dL (8.4-10.2); CREATININE, serum 0.72 mg/dL (0.72-1.25); MAGNESIUM 1.9 mg/dL (1.6-2.6)
[2021-06-20 06:41] LABS: HEMATOCRIT 19.4 % (42.0-52.0); MEAN CORPUSCULAR HEMOGLOBIN 25 pg (27-31)
[2021-06-20 06:43] LABS: HEMOGLOBIN 5.9 g/dl (13.5-18.0)
[2021-06-20 08:32] LABS: BAND 6 % (0-10); EOSINOPHIL 1 % (0-4); LYMPHOCYTE 12 % (20.0-51.0); NEUTROPHILS 79 % (42.0-75.2)
[2021-06-20 08:36] LABS: ANISOCYTOSIS 1+; HYPOCHROMIA 3+; PLATELET ESTIMATE DECREASED (NORMAL)
[2021-06-20 10:50] LABS: HEMATOCRIT 21.3 % (42.0-52.0); HEMOGLOBIN 6.6 g/dl (13.5-18.0)
--- NOTE | 2021-06-20 15:37 | NUR ---
Report given to YOSVANY Jasmine. PT taken to room 318 via wheelchair without incident. Mitali at bedside to assume care.
--- NOTE | 2021-06-20 16:20 | NUR ---
Patient arrived to the floor from ICU via wheelchair. Upon entry, patient used the urinal and had an out put of 400mL. Urine was pale yellow and clear. Patient ambulated well from wheelchair to the bed. is at the bedside and assists with cares. Requested a "duoderm" dressing for the sheering present on the patient's bilateral inner buttocks. Stated they did not have these dressings in the ER, and it is what the patient prefers. This RN provided the with a replicare, which is essentially the same dressing. applied the dressing while this RN assisted.
--- NOTE | 2021-06-20 20:30 | NUR ---
Initial shift assessment done- denies pain, Up walking around room, steady on feet, Tele on, now sitting up in chair, states its easier to breathe sitting up-- o2 at 5L/nc, understands to void per urinal so we can measure output.
[2021-06-21] VITALS (10 sets, daily range): BP systolic 121–142; BP diastolic 58–84; PULSE 74–89; TEMP 97.4–98.3
--- NOTE | 2021-06-21 05:57 | NUR ---
Has not slept more than an hour all night- VSS, pt is anxious at times- Ativan given twice this shift , also gave an immodium earlier this morning for an episode of diarrhea. pt remains on 5L/nc o2 high flow- sats 99% ,,pt states feels SOB if tries to lay down-- up in chair most of the night. Did give Roxicodone this morning per patients requests to help him relax and sleep. [facility] did call for a quick update on pt during the night- stated they should have a bed sometime today for patient- patient aware
[2021-06-21 06:25] LABS: MEAN CELL VOLUME 83 fl (80.0-100.0); MEAN CORPUSCULAR HGB CONC 32 g/dl (33.0-37.0); MEAN PLATELET VOLUME 10.7 fl (7.4-10.4); PLATELET COUNT 165 K/mm3 (130-400); RED BLOOD COUNT 2.55 M/mm3 (4.20-5.60); REDCELL DISTRIBUTION WIDTH-CV 17.2 % (11.5-14.5)
[2021-06-21 06:26] LABS: PROTHROMBIN TIME 22.5 SECONDS (9.7-12.8)
[2021-06-21 06:28] LABS: HEMATOCRIT 21.2 % (42.0-52.0); MEAN CORPUSCULAR HEMOGLOBIN 26 pg (27-31)
[2021-06-21 06:30] LABS: HEMOGLOBIN 6.7 g/dl (13.5-18.0)
[2021-06-21 06:39] LABS: CALCIUM 8.7 mg/dL (8.4-10.2); CREATININE, serum 0.75 mg/dL (0.72-1.25); MAGNESIUM 1.9 mg/dL (1.6-2.6); POTASSIUM 3.9 mmol/L (3.5-4.5)
[2021-06-21 07:25] LABS: BAND 2 % (0-10); HYPOCHROMIA 1+; LYMPHOCYTE 13 % (20.0-51.0); MYELOCYTE 3 % (0-0); NEUTROPHILS 78 % (42.0-75.2); PLATELET ESTIMATE NORMAL (NORMAL)
--- NOTE | 2021-06-21 10:07 | NUR ---
PT SITTING UP ON EDGE OF BED. MORNING MEDICATIONS GIVEN. SHIFT ASSESSMENT COMPLETED. PT STATES HE DOES NOT HAVE ANY PAIN AT THIS TIME, FEELS SOB. DENIES ANY NEEDS. PT IS ASKING ABOUT BEING TRANSFERED TO DIFFERENT FACILITY, UPDATED THAT THERE ARE NO PLANS AT THIS TIME. WILL CONTINUE TO MONITOR.
--- NOTE | 2021-06-21 13:31 | NUR ---
first visit from the manager community outreach. No needs right now.
--- NOTE | 2021-06-21 16:39 | NUR ---
PT FEELING SOB AND FLUSHED DURING TRANSFUSION. RATE SLOWED DOWN TO 120ML/HR. TEMPERATURE IS 97.7 ORAL AND 98.2 AXILLARY. CONTINUING TO MONITOR CLOSELY.
[2021-06-21 21:13] LABS: HEMATOCRIT 23.2 % (42.0-52.0); HEMOGLOBIN 7.4 g/dl (13.5-18.0)
[2021-06-22] VITALS (13 sets, daily range): BP systolic 121–166; BP diastolic 59–89; PULSE 62–92; TEMP 97–98.1
--- NOTE | 2021-06-22 06:00 | NUR ---
ASSESSMENT COMPLETE FOR THIS SHIFT. PT LAYING ON THE ROOM BENCH SLEEP. PT ASKED IF HE WANTED TO MOVE TO THE BED. PT STATED NO, THE BED WAS TOO UNCOMFORTABLE. PT DENIED PAIN, PALPITATIONS, N,V,D OR DIZZINESS. PT NPO AT MIDNIGHT. PT EXPRESSED NO OTHER NEEDS AT THIS TIME. CALL LIGHT WITHIN REACH.
[2021-06-22 06:56] LABS: MEAN CORPUSCULAR HGB CONC 30 g/dl (33.0-37.0); MEAN PLATELET VOLUME 9.8 fl (7.4-10.4); PLATELET COUNT 181 K/mm3 (130-400); RED BLOOD COUNT 2.77 M/mm3 (4.20-5.60); REDCELL DISTRIBUTION WIDTH-CV 17.2 % (11.5-14.5)
[2021-06-22 07:08] LABS: INR 2.2 (0.8-3.0)
[2021-06-22 07:13] LABS: HEMOGLOBIN 7.5 g/dl (13.5-18.0); MEAN CORPUSCULAR HEMOGLOBIN 27 pg (27-31)
[2021-06-22 07:14] LABS: HEMATOCRIT 24.8 % (42.0-52.0); MEAN CELL VOLUME 90 fl (80.0-100.0)
[2021-06-22 07:49] LABS: CALCIUM 8.6 mg/dL (8.4-10.2); CREATININE, serum 0.77 mg/dL (0.72-1.25); POTASSIUM 4.4 mmol/L (3.5-4.5)
[2021-06-22 08:11] LABS: BAND 5 % (0-10); LYMPHOCYTE 11 % (20.0-51.0); NEUTROPHILS 81 % (42.0-75.2)
[2021-06-22 08:14] LABS: PLATELET ESTIMATE NORMAL (NORMAL)
[2021-06-22 08:15] LABS: MICROCYTOSIS 1+
[2021-06-22 08:16] LABS: HYPOCHROMIA 2+
--- NOTE | 2021-06-22 09:49 | NUR ---
PT SITTING UP IN RECLINER, STATES HE HAS HAD THE BEST NIGHT IN A WHILE. IV MEDICATIONS ADMINISTERED, NPO FOR EGD THIS AFTERNOON. PT DENIES ANY PAIN AT THIS TIME. FEELS SOB BUT BELIEVES HIS BREATHING HAS IMPROVED. EXPIRATORY WHEEZES NOTED. BLE EDEMA AND DISCOLORATION. SHIFT ASSESSMENT COMPLETED. WILL CONTINUE TO MONITOR.
--- NOTE | 2021-06-22 12:18 | NUR ---
PT OFF UNIT FOR PROCEDURE AT THIS TIME.
--- NOTE | 2021-06-22 13:41 | NUR ---
PT BACK ON UNIT AT THIS TIME. VSS. OROZCO PREPARING TO PLACE PICC AT THIS TIME.
--- NOTE | 2021-06-22 13:43 | NUR ---
NOTIFIED BY TELE OF AN 11 BEAT RUN OF V-TACH AT THIS TIME. PT ASYMPTOMATIC. VSS. CALLED DR. CORNEJO AND LEFT A VOICEMAIL. WILL CONTINUE TO MONITOR.
--- NOTE | 2021-06-22 13:46 | NUR ---
Patient's clinical documentation faxed to Martita at [facility]. KADY Smith's information left with Martita for call back.
--- NOTE | 2021-06-22 16:03 | NUR ---
Forms Analysis Manager spoke with Martita at [facility] and they are able to accept patient once ready for discharge. Discharge Plan: [facility]
--- NOTE | 2021-06-22 17:24 | NUR ---
PT SITTING UP IN RECLINER, FEELS FINE AFTER RETURNING FROM EGD, VSS. DENIES ANY PAIN. CURRENTLY ON 3L OXYGEN VIA NC. PICC LINE PLACED, FLUSHES AND HAS GOOD BLOOD RETURN. DENIES NEEDS AT THIS TIME. CONTINUING TO MONITOR.
--- NOTE | 2021-06-22 20:30 | NUR ---
Initial shift assessment done- sitting in recliner- ready to leave for the night- wants another Ativan for anxiety- infomed it is not due till 2200 tonight- pt ok with this- PICC CURT, Tele on NSR, o2 at 3L/nc.
--- NOTE | 2021-06-23 00:40 | NUR ---
Patient states his back/legs are painful tonight 09/17-- will give roxicodone and also Melatonin as ordeed for sleep
[2021-06-23 00:46] VITALS: BP 140/75; PULSE 75; TEMP 97.5
[2021-06-23 04:21] VITALS: BP 122/65; PULSE 73; TEMP 97.5
--- NOTE | 2021-06-23 05:27 | NUR ---
O2 at 3L/nc with 97% sats, has been resting the past few hours in recliner- states back pain is better after the roxicodone given earlier.
[2021-06-23 06:35] LABS: INR 2.4 (0.8-3.0); PROTHROMBIN TIME 26.4 SECONDS (9.7-12.8)
[2021-06-23 06:36] LABS: MEAN CELL VOLUME 90 fl (80.0-100.0); MEAN CORPUSCULAR HGB CONC 29 g/dl (33.0-37.0); MEAN PLATELET VOLUME 9.6 fl (7.4-10.4); PLATELET COUNT 212 K/mm3 (130-400); RED BLOOD COUNT 2.84 M/mm3 (4.20-5.60); REDCELL DISTRIBUTION WIDTH-CV 17.2 % (11.5-14.5)
[2021-06-23 06:44] LABS: HEMATOCRIT 25.5 % (42.0-52.0); HEMOGLOBIN 7.5 g/dl (13.5-18.0); MEAN CORPUSCULAR HEMOGLOBIN 26 pg (27-31)
[2021-06-23 06:46] LABS: C-REACTIVE PROTEIN 1.39 mg/dL (0.00-0.50); CALCIUM 8.7 mg/dL (8.4-10.2); CREATININE, serum 0.78 mg/dL (0.72-1.25); POTASSIUM 3.9 mmol/L (3.5-4.5)
[2021-06-23 07:18] VITALS: BP 123/66; PULSE 68; TEMP 97.4
[2021-06-23 07:47] LABS: BAND 1 % (0-10); EOSINOPHIL 1 % (0-4); LYMPHOCYTE 24 % (20.0-51.0); NEUTROPHILS 62 % (42.0-75.2)
[2021-06-23 07:52] LABS: HYPOCHROMIA 3+; PLATELET ESTIMATE NORMAL (NORMAL)
--- NOTE | 2021-06-23 09:12 | NUR ---
PT SITTING UP IN RECLINER EATING BREAKFAST. MORNING MEDICATIONS GIVEN. SHIFT ASSESSMENT COMPLETED. CURRENTLY ON 3L VIA NC. LUNGS AUSCULATED, WHEEZING NOTED. DENIES ANY PAIN AT THIS TIME. WILL CONTINUE TO MONITOR.
[2021-06-23 11:12] VITALS: BP 120/59; PULSE 97; TEMP 97.6
--- NOTE | 2021-06-23 15:10 | NUR ---
Cigarette Packing Machine Operator attended clinical rounds with the team and patient is ready for discharge to [facility] in [place] today. Patient is agreeable to discharge plan. KADY contacted Martita at [facility] and confirmed they have a bed available today. Martita requested a transport time of 1700. KADY contacted [facility] and set pickling operator time for 1700. KADY provided time to patient, patient's radha Chavis, RN, and Silver Solution Mixer. KADY placed completed EMS forms on chart. KADY provided RN with report number then faxed discharge orders to Martita at [facility]. Discharge Plan: [facility] today, Room 124
[2021-06-23 15:49] VITALS: BP 122/60; PULSE 77; TEMP 98
--- NOTE | 2021-06-23 17:07 | NUR ---
EMS GIVEN A SHORT REPORT. PT HELPED ON TO STRETCHER AND ESCORTED OUT OF BUILDING WITH BELONGINGS. THIS RN ATTEMPTED TO CALL REPORT TO [facility] TWICE. WILL CONTINUE TO CALL. WILL D/C PT OUT OF SYSTEM.
--- NOTE | 2021-06-23 17:26 | NUR ---
REPORT GIVEN TO RN AT [facility].
== END 2021-06-23 17:27 | DRG 288 ==
LOC: COL.ER 10:57 → MEDICAL 12:58 → ICU 12:58 → MEDICAL 06-20 16:49
PROVIDERS: Internal Medicine; Internal Medicine Gastroenterology; Physician Assistant; Registered Nurse; Student in an Organized Health Care Education/Training Program; ADMIT Student in an Organized Health Care Education/Training Program
PROC: 5A0945A Assistance with Respiratory Ventilation, 24-96 Consecutive Hours, High Flow/Velocity Cannula (ICD-10-PCS; 2021-06-19)
PROC: 0DJ08ZZ Inspection of Upper Intestinal Tract, Via Natural or Artificial Opening Endoscopic (ICD-10-PCS; 2021-06-22)
PROC: 02HV33Z Insertion of Infusion Device into Superior Vena Cava, Percutaneous Approach (ICD-10-PCS; principal; 2021-06-22 12:15)
DX: I33.0 Acute and subacute infective endocarditis (principal); G93.41 Metabolic encephalopathy; E87.1 Hypo-osmolality and hyponatremia; J44.1 Chronic obstructive pulmonary disease with (acute) exacerbation; J96.11 Chronic respiratory failure with hypoxia; K92.1 Melena; B95.2 Enterococcus as the cause of diseases classified elsewhere; E87.8 Other disorders of electrolyte and fluid balance, not elsewhere classified; D64.9 Anemia, unspecified; I48.0 Paroxysmal atrial fibrillation; I27.20 Pulmonary hypertension, unspecified; K21.9 Gastro-esophageal reflux disease without esophagitis; F41.9 Anxiety disorder, unspecified; R04.0 Epistaxis; R79.1 Abnormal coagulation profile; E16.2 Hypoglycemia, unspecified; K76.0 Fatty (change of) liver, not elsewhere classified; L89.159 Pressure ulcer of sacral region, unspecified stage; E78.5 Hyperlipidemia, unspecified; F10.10 Alcohol abuse, uncomplicated; Z20.822 Contact with and (suspected) exposure to COVID-19; Z99.81 Dependence on supplemental oxygen; Z95.2 Presence of prosthetic heart valve; Z87.891 Personal history of nicotine dependence; Z86.73 Personal history of transient ischemic attack (TIA), and cerebral infarction without residual deficits; Z79.01 Long term (current) use of anticoagulants; L89.322 Pressure ulcer of left buttock, stage 2
CPT/HCPCS: 99223-AI; 99233-AI; 99239; A9575; C1751; J0290; J0692; J0696; J1940; J2704; J2920; J3360; J3370; J3430; J7030; J7050; J7120; J7512; P9016; Q9967

== ENCOUNTER 2021-07-30 13:40 | Day surgery (SDC) | payer MEDICARE, MEDICAID ==
--- NOTE | 2021-07-29 16:00 | NUR ---
1600 PT REPORTS ASTHMA, STAGE 4 COPD, EMPHYSEMA, CHF, EDEMA OF LOWER EXTREMITIES AND TAKING LASIX, HOSPITALIZED FOR STROKE 6 WEEKS AGO AND INR OF 12.3, INR FROM 07/19 IS 3.8. PT REPORTS ACTIVE ENDOCADRITIS. DOUBLE LUMEN PICC LINE IN PLACE WITH AMPICILLIN RUNNING 24 HRS/ DAY AND ROCEPHIN BID. HX OF 2 HEART VALVE REPLACEMENTS AND NEEDED TO BE DEFIBRILLATED AFTER POSTOP. FALL 01/2021, BROKEN BACK AT T-12 AND HEMATOMA ON BRAIN. 1630 HISTORY AND CURRENT CONDITION REPORTED TO DR. URIAS AND CLINICAL PSYCHOLOGY PROFESSOR.
--- NOTE | 2021-07-29 16:39 | NUR ---
[address] URIAS AND RAVI. REPEAT INR ORDERED BY RAVI VERA.
[~2021-07-30] VITALS: Ht 182.9 cm; Wt 83.6 kg
[~2021-07-30 13:40] MED LIST changes: +BREO ELLIPTA 21 EACH IH; +K-DUR 10 MEQ T10 MEQ PO; +K-TAB20 PO; +LASIX 40MG TABL40 MG PO
[2021-07-30] MEDS ORDERED: TUMS500 MG PO (14:02)
[2021-07-30] MEDS ORDERED: DITROPAN XL10 MG PO (14:06)
[2021-07-30] MEDS ORDERED: COMPLETE MULTI1 TAB PO (14:06)
[2021-07-30 14:08] LABS: INR 1.5 (0.8-3.0); PROTHROMBIN TIME 16.7 SECONDS (9.7-12.8)
[2021-07-30] MEDS ORDERED: K-TAB20 PO (14:08)
[2021-07-30 14:10] VITALS: BP 124/75; PULSE 69; TEMP 98.3
[2021-07-30 15:53] VITALS: BP 117/65; PULSE 66; TEMP 97.9
--- NOTE | 2021-07-30 15:53 | NUR ---
Pt returned via cart to bay 3. Ambulated with SBA to recliner in bay. VSS-see flowsheet. present. Given a coke and muffin per request. Warm blanket given and call light in reach.
[2021-07-30 16:00] VITALS: BP 121/71; PULSE 82
[2021-07-30 16:15] VITALS: BP 118/73; PULSE 67
--- NOTE | 2021-07-30 16:30 | NUR ---
Pt tolerated oral intake. VS remain stable-see flowsheet. Lumen used for procedure today flushed and capped while pts home abt continues to infuse. Pt dressed and did not want to wait for Dr Van to see him post procedure. Cell # taken of pts ANN Chavis and will ask Dr Tucker to call and give a report over the phone. Pt was anxious and reported he needed to get home to have a treatment. Pt taken by Palmira via wheelchair to private vehicle for dc home.
== END 2021-07-30 16:30 | disposition home or self-care (01) ==
LOC: SDCO 13:40
PROVIDERS: Nurse Anesthetist, Certified Registered
DX: D12.3 Benign neoplasm of transverse colon (principal); D12.5 Benign neoplasm of sigmoid colon; K57.30 Diverticulosis of large intestine without perforation or abscess without bleeding; D50.0 Iron deficiency anemia secondary to blood loss (chronic); I10 Essential (primary) hypertension; R09.02 Hypoxemia; K21.9 Gastro-esophageal reflux disease without esophagitis; Z95.2 Presence of prosthetic heart valve; Z79.01 Long term (current) use of anticoagulants; Z87.891 Personal history of nicotine dependence; Z79.899 Other long term (current) drug therapy; Z99.81 Dependence on supplemental oxygen
CPT/HCPCS: J7120

== ENCOUNTER 2021-07-31 07:09 | Emergency (ER) | payer MEDICARE, MEDICAID ==
[~2021-07-31] VITALS: Ht 182.9 cm; Wt 83.6 kg
[~2021-07-31 07:09] MED LIST changes: +COMPLETE MULTI1 TAB PO; +DITROPAN XL10 MG PO; +TUMS500 MG PO
[2021-07-31 07:13] VITALS: TEMP 97.1
[2021-07-31 07:35] LABS: MEAN CELL VOLUME 89 fl (80.0-100.0); MEAN CORPUSCULAR HGB CONC 33 g/dl (33.0-37.0); MEAN PLATELET VOLUME 9.2 fl (7.4-10.4); PLATELET COUNT 141 K/mm3 (130-400); RED BLOOD COUNT 2.44 M/mm3 (4.20-5.60); REDCELL DISTRIBUTION WIDTH-CV 18.9 % (11.5-14.5)
[2021-07-31 07:37] LABS: HEMATOCRIT 21.8 % (42.0-52.0); HEMOGLOBIN 7.1 g/dl (13.5-18.0); MEAN CORPUSCULAR HEMOGLOBIN 29 pg (27-31)
[2021-07-31 07:45] LABS: INR 1.5 (0.8-3.0); PROTHROMBIN TIME 17.1 SECONDS (9.7-12.8)
[2021-07-31 07:53] LABS: ALBUMIN 2.7 gm/dL (3.5-5.0); BILIRUBIN,TOTAL 0.5 mg/dL (0.2-1.2); CALCIUM 8.4 mg/dL (8.4-10.2); CREATININE, serum 0.8 mg/dL (0.72-1.25); POTASSIUM 3.6 mmol/L (3.5-4.5); TOTAL PROTEIN 7.1 gm/dL (6.2-8.1)
[2021-07-31 07:59] LABS: TROPONIN-I 0.027 ng/mL (0.00-0.033)
[2021-07-31 08:09] LABS: EOSINOPHIL 1 % (0-4); LYMPHOCYTE 28 % (20.0-51.0); NEUTROPHILS 59 % (42.0-75.2)
[2021-07-31 08:10] LABS: ANISOCYTOSIS 2+; HYPOCHROMIA 1+; PLATELET ESTIMATE NORMAL (NORMAL)
[2021-07-31 08:20] VITALS: BP 136/80; PULSE 70
== END 2021-07-31 08:24 | disposition home or self-care (01) ==
LOC: COL.ER 07:09
PROVIDERS: Emergency Medicine
DX: K62.5 Hemorrhage of anus and rectum (principal); Z95.4 Presence of other heart-valve replacement; Z98.890 Other specified postprocedural states; Z87.891 Personal history of nicotine dependence; Z79.01 Long term (current) use of anticoagulants

== ENCOUNTER 2021-08-03 09:00 | Outpatient (RCR) | payer MEDICARE, MEDICAID ==
--- NOTE | 2021-07-12 09:00 | NUR ---
Patient is in the express unit. He is here for PICC cares. Patient was transferred to [facility] in [place]. According to the patient, his PICC was removed shortly after arrival to [facility]. Peripheral IVs were done until left arm PICC placed. Patient has a left arm PICC intact. It is an Arrow dual-lumen catheter. Large amount of dried red blood is noted at site. PICC dressing change performed with sterile technique. Insertion site was cleansed with ChloraPrep x1, chlorhexidine impregnated disc applied, skin prep, StatLock, and Tegaderm applied. No signs or symptoms of IV complications noted. Patient to continue with PICC cares in the express unit. Patient voiced understanding of instructions.
[2021-07-12 09:57] VITALS: BP 108/60; PULSE 66; TEMP 97.9
[2021-07-12 10:41] LABS: MEAN CELL VOLUME 84 fl (80.0-100.0); MEAN CORPUSCULAR HGB CONC 32 g/dl (33.0-37.0); PLATELET COUNT 259 K/mm3 (130-400); RED BLOOD COUNT 2.79 M/mm3 (4.20-5.60); REDCELL DISTRIBUTION WIDTH-CV 18.4 % (11.5-14.5)
[2021-07-12 10:43] LABS: HEMATOCRIT 23.5 % (42.0-52.0); HEMOGLOBIN 7.6 g/dl (13.5-18.0); MEAN CORPUSCULAR HEMOGLOBIN 27 pg (27-31)
[2021-07-12 10:59] LABS: CALCIUM 9.1 mg/dL (8.4-10.2); CREATININE, serum 0.9 mg/dL (0.72-1.25); INR 2.7 (0.8-3.0); POTASSIUM 4.5 mmol/L (3.5-4.5); PROTHROMBIN TIME 30.7 SECONDS (9.7-12.8)
[2021-07-13 11:15] LABS: MEAN CELL VOLUME 85 fl (80.0-100.0); MEAN CORPUSCULAR HGB CONC 32 g/dl (33.0-37.0); MEAN PLATELET VOLUME 8.9 fl (7.4-10.4); PLATELET COUNT 232 K/mm3 (130-400); RED BLOOD COUNT 2.57 M/mm3 (4.20-5.60); REDCELL DISTRIBUTION WIDTH-CV 18.6 % (11.5-14.5)
[2021-07-13 11:17] VITALS: BP 107/59; PULSE 69; TEMP 97.9
[2021-07-13 11:17] LABS: HEMATOCRIT 21.9 % (42.0-52.0); HEMOGLOBIN 7.1 g/dl (13.5-18.0); INR 2.5 (0.8-3.0); MEAN CORPUSCULAR HEMOGLOBIN 28 pg (27-31); PROTHROMBIN TIME 28.1 SECONDS (9.7-12.8)
[2021-07-14 09:16] VITALS: BP 111/65; PULSE 72; TEMP 98.9
[2021-07-14 09:39] LABS: INR 2.8 (0.8-3.0); PROTHROMBIN TIME 31.5 SECONDS (9.7-12.8)
[2021-07-14 09:40] LABS: MEAN CELL VOLUME 87 fl (80.0-100.0); MEAN CORPUSCULAR HGB CONC 31 g/dl (33.0-37.0); MEAN PLATELET VOLUME 8.5 fl (7.4-10.4); PLATELET COUNT 220 K/mm3 (130-400); RED BLOOD COUNT 2.62 M/mm3 (4.20-5.60)
[2021-07-14 09:44] VITALS: BP 111/67; PULSE 73; TEMP 98.9
[2021-07-14 09:51] LABS: HEMATOCRIT 22.9 % (42.0-52.0); HEMOGLOBIN 7.2 g/dl (13.5-18.0); MEAN CORPUSCULAR HEMOGLOBIN 27 pg (27-31)
[2021-07-16 15:15] LABS: TRICYCLIC ANTIDEPRESS URINE NEGATIVE
[2021-07-19 09:43] VITALS: BP 104/64; PULSE 80; TEMP 98.2
--- NOTE | 2021-07-19 10:10 | NUR ---
Labs drawn, PICC dressing, cap, and extension tubing changed without incident; labs faxed to [facility] per pt and pts request; pt discharge via wheelchair with to [facility] at 1010.
[2021-07-19 10:18] LABS: BASO % 0.4 % (0.0-2.0); EOS # 0.1 K/mm3 (0.0-0.7); EOS % 1.4 % (0.0-4.0); GRAN # 3.6 K/mm3 (1.4-6.5); GRAN % 73.6 % (42.2-75.2); LYMPH # 0.8 K/mm3 (1.2-3.4); LYMPH % 16.2 % (20.0-51.0); MEAN CELL VOLUME 86 fl (80.0-100.0); MEAN CORPUSCULAR HGB CONC 32 g/dl (33.0-37.0); MEAN PLATELET VOLUME 8.8 fl (7.4-10.4); MONO # 0.4 K/mm3 (0.1-0.6); PLATELET COUNT 214 K/mm3 (130-400); RED BLOOD COUNT 2.63 M/mm3 (4.20-5.60); REDCELL DISTRIBUTION WIDTH-CV 19.6 % (11.5-14.5)
[2021-07-19 10:20] LABS: HEMATOCRIT 22.7 % (42.0-52.0); HEMOGLOBIN 7.3 g/dl (13.5-18.0); MEAN CORPUSCULAR HEMOGLOBIN 28 pg (27-31)
[2021-07-19 10:24] LABS: INR 3.2 (0.8-3.0); PROTHROMBIN TIME 35.7 SECONDS (9.7-12.8)
[2021-07-19 10:29] LABS: CALCIUM 8.7 mg/dL (8.4-10.2); CREATININE, serum 0.78 mg/dL (0.72-1.25); POTASSIUM 4.2 mmol/L (3.5-4.5)
[2021-07-27 13:37] LABS: MEAN CELL VOLUME 90 fl (80.0-100.0); MEAN CORPUSCULAR HGB CONC 32 g/dl (33.0-37.0); MEAN PLATELET VOLUME 8.7 fl (7.4-10.4); PLATELET COUNT 196 K/mm3 (130-400); RED BLOOD COUNT 2.46 M/mm3 (4.20-5.60); REDCELL DISTRIBUTION WIDTH-CV 19.4 % (11.5-14.5)
[2021-07-27 13:39] LABS: HEMATOCRIT 22.1 % (42.0-52.0); MEAN CORPUSCULAR HEMOGLOBIN 28 pg (27-31)
[2021-07-27 13:48] VITALS: BP 110/57; PULSE 71; TEMP 98.3
[2021-07-27 13:58] LABS: ALBUMIN 2.8 gm/dL (3.5-5.0); BILIRUBIN,TOTAL 0.4 mg/dL (0.2-1.2); C-REACTIVE PROTEIN 4.08 mg/dL (0.00-0.50); CALCIUM 9.1 mg/dL (8.4-10.2); CREATININE, serum 0.78 mg/dL (0.72-1.25); POTASSIUM 4.2 mmol/L (3.5-4.5); TOTAL PROTEIN 7.5 gm/dL (6.2-8.1)
[2021-08-02 08:40] LABS: MEAN CELL VOLUME 92 fl (80.0-100.0); MEAN CORPUSCULAR HGB CONC 32 g/dl (33.0-37.0); MEAN PLATELET VOLUME 9.5 fl (7.4-10.4); PLATELET COUNT 128 K/mm3 (130-400); RED BLOOD COUNT 2.11 M/mm3 (4.20-5.60); REDCELL DISTRIBUTION WIDTH-CV 19.3 % (11.5-14.5)
[2021-08-02 08:43] VITALS: BP 108/48; PULSE 77; TEMP 98.4
[2021-08-02 08:47] LABS: HEMATOCRIT 19.4 % (42.0-52.0); HEMOGLOBIN 6.2 g/dl (13.5-18.0); MEAN CORPUSCULAR HEMOGLOBIN 29 pg (27-31)
[2021-08-02 08:54] LABS: INR 1.5 (0.8-3.0); PROTHROMBIN TIME 16.1 SECONDS (9.7-12.8)
[2021-08-02 08:59] LABS: ALBUMIN 2.5 gm/dL (3.5-5.0); BAND 13 % (0-10); C-REACTIVE PROTEIN 6.52 mg/dL (0.00-0.50); CALCIUM 8.3 mg/dL (8.4-10.2); CREATININE, serum 0.76 mg/dL (0.72-1.25); EOSINOPHIL 2 % (0-4); LYMPHOCYTE 34 % (20.0-51.0); NEUTROPHILS 47 % (42.0-75.2); POTASSIUM 3.6 mmol/L (3.5-4.5); TOTAL PROTEIN 6.6 gm/dL (6.2-8.1)
[2021-08-02 09:00] LABS: ANISOCYTOSIS 2+; PLATELET ESTIMATE NORMAL (NORMAL)
[2021-08-02 09:06] LABS: ERYTHROCYTE SEDIMENTATION RATE 63 mm/hr (0-30)
[2021-08-02 09:08] LABS: BILIRUBIN,TOTAL 0.5 mg/dL (0.2-1.2)
[2021-08-03] VITALS (9 sets, daily range): BP systolic 105–133; BP diastolic 59–73; PULSE 59–70; TEMP 97.9–98.8
[~2021-08-03] VITALS: Ht 182.9 cm; Wt 89.4 kg
== END 2021-08-03 17:26 | disposition home or self-care (01) ==
LOC: EUO 09:00
PROVIDERS: Internal Medicine; Internal Medicine Cardiovascular Disease
DX: Z79.899 Other long term (current) drug therapy (principal)
CPT/HCPCS: J2704; J7050; P9016

== ENCOUNTER 2023-11-11 07:50 | Emergency (ER) | payer MEDICARE, MEDICAID ==
[~2023-11-11] VITALS: Ht 182.9 cm; Wt 102.3 kg
[~2023-11-11 07:50] MED LIST changes: +AMOXICILLIN 50500 MG PO; +COUMADIN 1010 MG/TAB PO; +DOXYCYCLINE HY100 MG PO; +LEXAPRO 10MG10 MG PO; +PREDNISONE10 MG PO; +VIAGRA100 M1; +WELLBUTRIN XL150 MG PO; +ZANAFLEX CAPSULE2 MG PO
[2023-11-11 08:04] VITALS: TEMP 98.3
[2023-11-11] MEDS ORDERED: PAXLOVID CO-PA1 EACH PO (09:42)
[2023-11-11 09:58] VITALS: BP 149/81; PULSE 70
== END 2023-11-11 09:58 | disposition home or self-care (01) ==
LOC: COL.ER 07:50
DX: U07.1 COVID-19 (principal); R09.81 Nasal congestion; R06.02 Shortness of breath

== ENCOUNTER → 2023-12-28 | Outpatient (CLI) | payer MEDICARE ==
[~2023-12-28] MED LIST changes: +PAXLOVID CO-PA1 EACH PO
== END ==
LOC: COL.RAD 13:58
DX: Z12.2 Encounter for screening for malignant neoplasm of respiratory organs (principal); R91.8 Other nonspecific abnormal finding of lung field; J44.9 Chronic obstructive pulmonary disease, unspecified; K22.89 Other specified disease of esophagus; M71.20 Synovial cyst of popliteal space [Baker], unspecified knee; Z87.891 Personal history of nicotine dependence

== ENCOUNTER → 2024-02-08 | Outpatient (RCR) | payer MEDICARE, MEDICAID | END | disposition home or self-care (01) | LOC: COL.CR | DX: Z02.89 Encounter for other administrative examinations (principal) ==